=== PATIENT | female | born 1985 | race Caucasian/White ===

== ENCOUNTER 2020-03-17 17:44 | Outpatient (REF) | payer MEDICAID, SELFPAY ==
--- NOTE | 2020-03-17 17:50 | MR_ITS ---
EXAMINATION: MR SHOULDER WITHOUT CONTRAST, RIGHT CLINICAL INFORMATION: Right shoulder pain and decreased range of motion for 2 months. COMPARISON: Right shoulder radiographs dated 12/21/2019. TECHNIQUE: MRI of the shoulder without contrast was performed on a high-field scanner. FINDINGS: ROTATOR CUFF: Minimal infraspinatus tendinosis with degenerative cystic change in the adjacent greater tuberosity. No measurable rotator cuff defect. No muscle atrophy or fatty infiltration. BICEPS: Normal. CORACOACROMIAL ARCH: The undersurface of the acromion is minimally curved with no subacromial spur. The acromioclavicular joint is normal. LABRUM/CAPSULE: Normal. GLENOHUMERAL JOINT/MARROW: Normal. MR/MR shoulder RT wo con IMPRESSION: Minimal infraspinatus tendinosis with degenerative cystic change in the greater tuberosity. No measurable rotator cuff defect.
== END 2020-03-17 17:45 | disposition home or self-care (01) ==
LOC: HO.MRI 17:44
PROVIDERS: Visit Provider Emergency Medicine
DX: M25.511 Pain in right shoulder (principal)
CPT/HCPCS: 73221

== ENCOUNTER → 2021-07-18 12:56 | Outpatient (BNVA) | payer MEDICAID, SELFPAY | PROVIDERS: PCP Internal Medicine Geriatric Medicine; Visit Provider Nurse Practitioner Family | DX: M54.12 Radiculopathy, cervical region (principal); M79.18 Myalgia, other site | CPT/HCPCS: 99202 ==

== ENCOUNTER → 2021-08-15 13:46 | Outpatient (BNVA) | payer MEDICAID, SELFPAY | PROVIDERS: PCP Internal Medicine Geriatric Medicine; Visit Provider Nurse Practitioner Family | DX: M79.18 Myalgia, other site (principal); M54.12 Radiculopathy, cervical region | CPT/HCPCS: 99212 ==

== ENCOUNTER 2021-10-09 12:06 | Emergency (ER) | payer MEDICAID, SELFPAY ==
--- NOTE | ~2021-10-09 | XR_ITS ---
EXAMINATION: CHEST AND RIGHT RIBS, PELVIS AND RIGHT HIP, RIGHT SHOULDER CLINICAL INFORMATION: Fall with pelvis and hip pain, rib pain and right shoulder pain COMPARISON: None TECHNIQUE: Single view chest with 2 additional views right RIBS, 2 views right shoulder, single view pelvis with 2 additional views right hip FINDINGS: No significant bone joint or soft tissue abnormality is seen. There is a biconvex thoracolumbar scoliosis. The heart and pulmonary vessels appear normal. The lungs are clear. XR/XR hip RT w PEL1V IMPRESSION: No evidence of a traumatic osseous injury involving the chest, right RIBS, pelvis, right hip or right shoulder
--- NOTE | ~2021-10-09 | XR_ITS ---
EXAMINATION: CHEST AND RIGHT RIBS, PELVIS AND RIGHT HIP, RIGHT SHOULDER CLINICAL INFORMATION: Fall with pelvis and hip pain, rib pain and right shoulder pain COMPARISON: None TECHNIQUE: Single view chest with 2 additional views right RIBS, 2 views right shoulder, single view pelvis with 2 additional views right hip FINDINGS: No significant bone joint or soft tissue abnormality is seen. There is a biconvex thoracolumbar scoliosis. The heart and pulmonary vessels appear normal. The lungs are clear. XR/XR shoulder RT min 2V IMPRESSION: No evidence of a traumatic osseous injury involving the chest, right RIBS, pelvis, right hip or right shoulder
--- NOTE | ~2021-10-09 | CT_ITS ---
EXAMINATION: CT HEAD WITHOUT CONTRAST CT CERVICAL SPINE WITHOUT CONTRAST CLINICAL INFORMATION: Fall. Questionable loss of consciousness. COMPARISON: None. TECHNIQUE: Multidetector CT imaging of the head and cervical spine was performed without the use of intravenous contrast. Multiplanar reformats are reviewed. This CT examination was performed using dose optimization techniques as appropriate, variously including the following: *Automated exposure control *Adjustment of mA and/or kV according to patient size (this includes techniques or standardized protocols for targeted exams where dose is matched to indication/reason for exam; i.e. extremities or head) *Use of iterative reconstruction technique DLP: 1033 mGy-cm. FINDINGS: There is no evidence of acute intracranial hemorrhage or territorial infarction. No abnormal mass effect or midline shift is seen. Faith to white matter differentiation is well preserved. No extra-axial fluid collections are identified. The ventricles are normal in size. There is no abnormal attenuation within the brain parenchyma. The osseous structures and soft tissues are normal. Scattered secretions throughout the paranasal sinuses. Mastoid air cells are clear. Atlantooccipital alignment is maintained. The vertebral bodies and posterior elements align normally. No acute fracture or subluxation. Vertebral body heights are maintained. No significant degenerative changes are appreciated. No central canal or foraminal narrowing. The paraspinal soft tissues are unremarkable. The imaged lung apices are clear CT/CT cervical spine wo con IMPRESSION: No acute intracranial pathology. No cervical spine fracture or malalignment.
--- NOTE | ~2021-10-09 | CT_ITS ---
EXAMINATION: CT HEAD WITHOUT CONTRAST CT CERVICAL SPINE WITHOUT CONTRAST CLINICAL INFORMATION: Fall. Questionable loss of consciousness. COMPARISON: None. TECHNIQUE: Multidetector CT imaging of the head and cervical spine was performed without the use of intravenous contrast. Multiplanar reformats are reviewed. This CT examination was performed using dose optimization techniques as appropriate, variously including the following: *Automated exposure control *Adjustment of mA and/or kV according to patient size (this includes techniques or standardized protocols for targeted exams where dose is matched to indication/reason for exam; i.e. extremities or head) *Use of iterative reconstruction technique DLP: 1033 mGy-cm. FINDINGS: There is no evidence of acute intracranial hemorrhage or territorial infarction. No abnormal mass effect or midline shift is seen. Faith to white matter differentiation is well preserved. No extra-axial fluid collections are identified. The ventricles are normal in size. There is no abnormal attenuation within the brain parenchyma. The osseous structures and soft tissues are normal. Scattered secretions throughout the paranasal sinuses. Mastoid air cells are clear. Atlantooccipital alignment is maintained. The vertebral bodies and posterior elements align normally. No acute fracture or subluxation. Vertebral body heights are maintained. No significant degenerative changes are appreciated. No central canal or foraminal narrowing. The paraspinal soft tissues are unremarkable. The imaged lung apices are clear CT/CT head/brain wo con IMPRESSION: No acute intracranial pathology. No cervical spine fracture or malalignment.
--- NOTE | ~2021-10-09 | XR_ITS ---
EXAMINATION: CHEST AND RIGHT RIBS, PELVIS AND RIGHT HIP, RIGHT SHOULDER CLINICAL INFORMATION: Fall with pelvis and hip pain, rib pain and right shoulder pain COMPARISON: None TECHNIQUE: Single view chest with 2 additional views right RIBS, 2 views right shoulder, single view pelvis with 2 additional views right hip FINDINGS: No significant bone joint or soft tissue abnormality is seen. There is a biconvex thoracolumbar scoliosis. The heart and pulmonary vessels appear normal. The lungs are clear. XR/XR ribs RT min 3V w CXR1V IMPRESSION: No evidence of a traumatic osseous injury involving the chest, right RIBS, pelvis, right hip or right shoulder
[2021-10-09 12:22] VITALS: BP 118/72; PULSE 87; O2SAT 97
[2021-10-09 12:24] VITALS: BP 140/76; PULSE 76; RESP 18; TEMP 36.6; O2SAT 98; BMI 23.3
--- NOTE | 2021-10-09 12:27 | ED_ITS ---
HPI - Fall General Chief Complaint: Fall Stated Complaint: FALL DOWN 4 FLIGHTS OF CEMENT STEPS,+LOC,+CCOLLAR Time Seen by Provider: 10/09/21 12:21 Source: patient and EMS Mode of arrival: EMS Limitations: no limitations History of Present Illness HPI Narrative: Patient comes to the emergency room after falling and slipping down 4 stairs. 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 Patient is triaged, it says the patient lost consciousness, however after talking with the patient, since that this was a language issue, patient states that she failed dazed but did not lose consciousness. Patient was awake the whole time and remembers everything. Patient states that she is complaining of rib pain that is worse under the right axilla. Patient also complained of right hip pain. Related Data Home Medications Medication Instructions Recorded Confirmed acetaminophen 500 mg tablet 1,000 mg PO Q8H PRN 07/18/21 08/15/21 albuterol sulfate 90 mcg/actuation 2 puff PO Q4-6H PRN 07/18/21 08/15/21 aerosol inhaler (ProAir HFA) cholecalciferol (vitamin D3) 50 50 mcg PO DAILY 07/18/21 08/15/21 mcg (2,000 unit) capsule gabapentin 300 mg capsule 300 mg PO TID 07/18/21 08/15/21 sumatriptan succinate 25 mg tablet 25 mg PO 07/18/21 08/15/21 Previous Rx's Medication Instructions Recorded cyclobenzaprine 10 mg tablet 10 mg PO TID PRN #10 tab 10/09/21 ibuprofen 600 mg tablet 600 mg PO Q6H PRN #20 tab 10/09/21 Allergies Allergy/AdvReac Type Severity Reaction Status Date / Time No Known Allergies Allergy Verified 08/15/21 14:17 [No Known Allergies*] Review of Systems Review of Systems: Constitutional : No Weight loss, No Fever, No Chills, No Night Sweats, No Fatigue, No Malaise ENT/Mouth : No Hearing loss, No Ear Pain, No Nasal Congestion, No Sinus Pain, No Hoarseness, No sore throat, No Rhinorrhea, No Swallowing Difficulty Eyes: No Eye Pain, No Swelling, No Redness, No Foreign Body, No Discharge, No Vision Changes Cardiovascular : No Chest Pain, No SOB, No Dyspnea on Exertion, No Orthopnea, No Edema, No Palpitations Respiratory : No Cough, No Sputum, No Wheezing, No Smoke Exposure, No Dyspnea Gastrointestinal : No Nausea, No Vomiting, No Diarrhea, No Constipation, No abdominal Pain, No Hematochezia, No Melena Genitourinary : no irregular bleeding, No Dysuria, No Urinary Frequency, No Hematuria, No Urinary Incontinence, No Urgency, No Flank Pain, No Urinary Flow Changes, No Hesitancy Musculoskeletal : Complaining of mild neck pain, rib pain under the right axilla, right hip Skin : No Skin Lesions, No rash Neuro : No Weakness, No Numbness, No Paresthesias, No Loss of Consciousness, No Dizziness, complaining of Headache Psych : No Anxiety/Panic, No Depression, No SI/HI/AH/VH, No Social Issues, Heme/Lymph: No Bruising, No Bleeding,No Lymphadenopathy Endocrine : No Polyuria, No Polydipsia, No Temperature Intolerance PMFSH Social History Social History Advance Directives: No Advance Directives Information Provided: No Physical Exam Vital Signs: Vital Signs: Last Vital Signs Temp 98 F 10/09/21 12:24 Pulse 76 10/09/21 12:24 Resp 18 10/09/21 12:24 BP 140/76 H 10/09/21 12:24 Pulse Ox 98 10/09/21 12:24 BMI result Body Mass Index 23.3 Const: Other: Appearance: Alert. Oriented X3. No acute distress. Eyes: Pupils equal, round and reactive to light. ENT: Pharynx normal. Neck: On C-spine precautions. No palpable step-offs, mild discomfort to palpation on the lateral sides of the neck, no C-spine tenderness CVS: Normal heart rate and rhythm. Pulses normal. Normal S1 and S2 Respiratory: No respiratory distress. Breath sounds normal. No Wheezing. No rales Abdomen: Soft and nontender. No rigidity. No distention. Skin: Skin warm and dry. Normal skin color. Normal skin turgor. No bruising, pain to palpation on the right axilla Extremities: No lower extremity edema. No Lacerations. No Rash, no shoulder pain, normal range of motion bilateral Neuro: Oriented X 3. No motor deficit. No sensory deficit. Moving all extremities. No slurred speech. CN 2 through 12 grossly intact Psych: calm, cooperative, normal affect Course Course Course Narrative: Patient has been giving Tylenol p.o., CT scans of head and neck, x-rays from de bs and hip pending. Head and cervical spine CT within normal limits, x-rays pending, results discussed with patient X-rays do not show any fracture. Source of pain likely contusion. Prior to discharge, patient developed a rash, itchy in the right side, patient was given 1 dose of Benadryl and prednisone. MDM - Fall Imaging Data Head and cervical spine CT: Radiologist's impression: FINDINGS: There is no evidence of acute intracranial hemorrhage or territorial infarction. No abnormal mass effect or midline shift is seen. Faith to white matter differentiation is well preserved. No extra-axial fluid collections are identified. The ventricles are normal in size. There is no abnormal attenuation within the brain parenchyma. The osseous structures and soft tissues are normal. Scattered secretions throughout the paranasal sinuses. Mastoid air cells are clear. Atlantooccipital alignment is maintained. The vertebral bodies and posterior elements align normally. No acute fracture or subluxation. Vertebral body heights are maintained. No significant degenerative changes are appreciated. No central canal or foraminal narrowing. The paraspinal soft tissues are unremarkable. The imaged lung apices are clear ? CT/CT head/brain wo con IMPRESSION: No acute intracranial pathology. No cervical spine fracture or malalignment. Shoulder x-ray, right ribs, right pelvis, right hip x-ray: Radiologist's impression: XR/XR shoulder RT min 2V IMPRESSION: No evidence of a traumatic osseous injury involving the chest, right RIBS, pelvis, right hip or right shoulder? Discharge Plan Discharge Clinical Impression: Fall, Contusion Patient Disposition: Home, Self-Care Instructions: Contusion in Adults (ED) Additional Instructions: Please follow-up with your primary care physician tomorrow. If you have any worsening or new symptoms, please return to the emergency room or call 911 Prescriptions: New ibuprofen 600 mg tablet 600 mg PO Q6H PRN (Reason: pain) Qty: 20 0RF cyclobenzaprine 10 mg tablet 10 mg PO TID PRN (Reason: muscle spasm) Qty: 10 0RF No Action albuterol sulfate [ProAir HFA] 90 mcg/actuation HFA aerosol inhaler 2 puff PO Q4-6H PRN0RF acetaminophen 500 mg tablet 1,000 mg PO Q8H PRN0RF gabapentin 300 mg capsule 300 mg PO TID 0RF cholecalciferol (vitamin D3) 50 mcg (2,000 unit) capsule 50 mcg PO DAILY 0RF sumatriptan succinate 25 mg tablet 25 mg PO 0RF Stand Alone Forms: Work/School Release
[2021-10-09] MEDS: Ondansetron ODT 4 MG TAB.RAPDIS TRANSLINGU (12:53)
[2021-10-09] MEDS: Acetaminophen 325 MG TABLET 975 MG PO (13:18)
[2021-10-09 16:00] VITALS: BP 129/71; PULSE 78; RESP 18; TEMP 36.9; O2SAT 98
[2021-10-09] MEDS: diphenhydrAMINE HCL 25 MG TABLET PO (16:08)
[2021-10-09] MEDS: predniSONE 20 MG TABLET PO (16:08)
--- NOTE | 2021-10-09 16:14 | PC.NURSE ---
Addendum entered by Amaya Ortiz 10/09/21 16:15: pt noted new rash on right arm, provider notified. Original Note: pt a&ox3, c/o 12/03 right-sided pain following fall, provider talking to pt regarding ct/xr results, vss. medicated per provider order.
== END 2021-10-09 16:16 | disposition home or self-care (01) ==
PROVIDERS: Emergency Provider Emergency Medicine; PCP Internal Medicine Geriatric Medicine
DX: S20.213A Contusion of bilateral front wall of thorax, initial encounter (principal); S30.1XXA Contusion of abdominal wall, initial encounter; M25.552 Pain in left hip; M25.551 Pain in right hip; G44.309 Post-traumatic headache, unspecified, not intractable; M54.2 Cervicalgia; W10.9XXA Fall (on) (from) unspecified stairs and steps, initial encounter; Y93.9 Activity, unspecified; Y92.9 Unspecified place or not applicable; Y99.0 Civilian activity done for income or pay; Z79.899 Other long term (current) drug therapy
CPT/HCPCS: 70450; 71101; 72125; 73030; 73502; 99284; Q0163

== ENCOUNTER 2021-11-03 12:37 | Outpatient (REF) | payer MEDICAID, SELFPAY ==
--- NOTE | ~2021-11-03 | XR_ITS ---
EXAMINATION: XR CHEST CLINICAL INFORMATION: Fluid-filled COMPARISON: Previous chest x-ray 10/09/2021 TECHNIQUE: 2 views of the chest were obtained. FINDINGS: The cardiac and mediastinal contours are normal. The lungs are clear. There is no pleural effusion or pneumothorax. There is curvature of the thoracic spine to the right. Bony structures are otherwise unremarkable. XR/XR chest 2V IMPRESSION: No evidence for acute disease in the chest.
== END 2021-11-03 12:38 | disposition home or self-care (01) ==
LOC: HO.XRAY 12:37
PROVIDERS: Visit Provider Emergency Medicine
DX: J11.1 Influenza due to unidentified influenza virus with other respiratory manifestations (principal)
CPT/HCPCS: 71046

== ENCOUNTER 2021-11-14 12:47 | Emergency (ER) | payer MEDICAID, SELFPAY ==
--- NOTE | ~2021-11-14 | CT_ITS ---
EXAMINATION: CT HEAD WITHOUT CONTRAST CLINICAL INFORMATION: Headache. COMPARISON: CT head 10/09/2021 TECHNIQUE: Contiguous axial imaging was performed from the skull base to vertex without intravenous administration of contrast. Coronal and sagittal reformatted images are performed at the CT scanner. [This CT examination was performed using dose optimization techniques as appropriate, variously including the following: *Automated exposure control *Adjustment of mA and/or kV according to patient size (this includes techniques or standardized protocols for targeted exams where dose is matched to indication/reason for exam; i.e. extremities or head) *Use of iterative reconstruction technique] DLP: 614 mGy-cm. FINDINGS: There is no evidence of acute intracranial hemorrhage or territorial infarction. No abnormal mass-effect or midline shift is seen. Faith to white matter differentiation is well preserved. No extra-axial fluid collections are identified. The ventricles are normal in size. There is no abnormal attenuation within the brain parenchyma. There is no osseous abnormality. Aerosolized mucous in the sphenoid sinuses bilateral. Scattered mucosal thickening in the ethmoid and maxillary sinuses. Mastoid air cells and middle ear cavities are normally aerated. CT/CT head/brain wo con IMPRESSION: 1. No acute intracranial pathology. 2. Sinus disease.
[2021-11-14 13:46] VITALS: BP 138/80; PULSE 78; RESP 18; TEMP 37; O2SAT 99; BMI 23.3
[2021-11-14 14:16] LABS: Influenza A Negative (Negative); Influenza B2 Negative (Negative)
[2021-11-14 14:16] LABS: COVID-19 Test Negative (Negative); IDNOW Serial# 16C4AD1C
--- NOTE | 2021-11-14 14:52 | ED.GENADULT ---
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 Patient does have history of migraines but states that they have not been constant in this way, she has completed a course of antibiotics for suspected sinusitis but complaints of forehead, throat, neck discomfort. She states that [id number] medications have not been helping and feels that she is very sick and has had were symptoms over the past 3 days. She denies any recent travel, and denies any history camping/ hiking/ walking in the [place] but does have a dog. Related Data Home Medications Medication Instructions Recorded Confirmed acetaminophen 500 mg tablet 1,000 mg PO Q8H PRN 07/18/21 08/15/21 albuterol sulfate 90 mcg/actuation 2 puff PO Q4-6H PRN 07/18/21 08/15/21 aerosol inhaler (ProAir HFA) cholecalciferol (vitamin D3) 50 50 mcg PO DAILY 07/18/21 08/15/21 mcg (2,000 unit) capsule gabapentin 300 mg capsule 300 mg PO TID 07/18/21 08/15/21 sumatriptan succinate 25 mg tablet 25 mg PO migraine 07/18/21 08/15/21 Previous Rx's Medication Instructions Recorded cyclobenzaprine 10 mg tablet 10 mg PO TID PRN muscle spasm #10 10/09/21 tabs ibuprofen 600 mg tablet 600 mg PO Q6H PRN pain #20 tabs 10/09/21 amoxicillin 875 mg-potassium 1 tab PO Q12H 7 days #14 tabs 11/14/21 clavulanate 125 mg tablet ketorolac 10 mg tablet 10 mg PO Q6H PRN pain 5 days #20 11/14/21 tabs Allergies Allergy/AdvReac Type Severity Reaction Status Date / Time No Known Allergies Allergy Verified 08/15/21 14:17 [No Known Allergies*] Review of Systems Review of Systems: Pertinent positives and negatives as stated in HPI 10 point review of systems is otherwise negative. [facility] Past Medical History Source: nursing notes reviewed Social History Social History Patient Tobacco Use Status: Never used Tobacco Substance Use Type: Marijuana Advance Directives: No Advance Directives Information Provided: No Physical Exam ED Vital Signs: Vital Signs - 24 hr 11/14/21 13:46 Temperature 98.6 F Pulse Rate 78 Respiratory Rate 18 Blood Pressure 138/80 Pulse Oximetry 99 Oxygen Delivery Method Room Air BMI result Body Mass Index 23.3 VITAL SIGNS: Reviewed. GENERAL: Well developed, well nourished HEAD: Normocephalic/atraumatic, no adenopathy EYES: PERRLA, EOMI , no nystagmus EARS: Ext canals without abnormality OROPHARYNX: no oral lesions noted, posterior pharynx clear and non-erythematous without noted tonsillar enlargement/erythema/exudates NECK: Supple, no adenopathy LUNGS: Normal breath sounds. No adventitious sounds or accessory muscle use. SpO2<99> CARDIOVASCULAR: Regular rate and rhythm without noted murmurs ABDOMEN: Soft, non-tender, non-distended with bowel sounds. MUSCULOSKELETAL: No tenderness, deformities, or effusions noted on gross inspection. EXTREMITIES: No cyanosis, clubbing or edema. SKIN: Inspection of the skin reveals no rashes NEUROLOGIC: Alert and oriented x 4. Strength and sensation to light touch were grossly intact x 4 PSYCH: tearful, anxious Course Course Course Narrative: 35-year-old female with history and clinical presentation consistent possible viral syndrome, will evaluate for possible infectious etiology, low clinical suspicion for meningitis as this has been ongoing for 1 month. Patient is tearful. review of all investigations without acute findings. Patient did get some symptom relief from the medications that she was provided. CT scan does demonstrate significant sinus disease and patient will be treated with antibiotics and given instructions follow-up with primary care provider for possible referral to see ENT. Medical Decision Making Lab Data Result diagrams: 11/14/21 15:11 11/14/21 15:11 Labs: Lab Results 11/14/21 11/14/21 11/14/21 Range/Units 13:48 13:49 15:07 WBC (4.8-10.8) X10*3/uL RBC (4.20-5.50) X10*6/uL Hgb (12.0-16.0) g/dl Hct (37.0-47.0) % MCV (80.0-98.0) fL MCH (27.0-33.0) pg MCHC (31.0-35.0) g/dl RDW (11.0-16.0) % Plt Count (160-400) X10*3/uL MPV (9.4-12.3) fL Immature Gran % (Auto) (0.0-0.4) % Neut % (Auto) (45-73) % Lymph % (Auto) (20-40) % Wilkin % (Auto) (2-11) % Eos % (Auto) (0-4) % Baso % (Auto) (0-2) % Lymph # (Auto) (1.2-4.9) X10*3/uL Wilkin # (Auto) (0.1-1.2) X10*3/uL Eos # (Auto) (0.0-0.4) X10*3/uL Baso # (Auto) (0.0-0.2) X10*3/uL Abs Immat Gran (auto) (0.00-0.03) X10*3/uL Absolute Neuts (auto) (2.0-8.3) x10*3/uL Absolute Nucleated RBC (0.0-0.012) X10*3/uL Nucleated RBC % (auto) (0.0-0.2) /100WBC ESR (0-20) MM/HR Sodium (135-145) mmol/L Potassium (3.3-5.1) mmol/L Chloride (96-108) mmol/L Carbon Dioxide (22-29) mmol/L Anion Gap (12-20) BUN (9-16) mg/dL Creatinine (0.5-1.4) mg/dL Estim Creat Clear Calc Estimated GFR Random Glucose (60-115) mg/dL Calcium (8.4-10.2) mg/dL Total Bilirubin (0.0-1.0) mg/dL AST (5-31) U/L ALT (0-31) U/L Alkaline Phosphatase (39-117) U/L C-Reactive Protein (< or = 0.50) mg/dL Total Protein (6.5-8.0) g/dL Albumin (3.5-5.0) g/dL Urine Color STRAW Urine Appearance HAZY Urine pH 6.0 (5.0-8.0) Ur Specific [place] 1.010 (1.005-1.025) Urine Protein NEG (NEG-TRACE) MG/DL Urine Glucose (UA) NEG (NEG) MG/DL Urine Ketones NEG (NEG) MG/DL Urine Blood 3+ H (NEG) Urine Nitrite NEG (NEG) Ur Leukocyte Esterase NEG (NEG) Urine RBC 30-49 H (0) /HPF Urine WBC 0-2 (0-4) /HPF Ur Squamous Epith Cells 1+ /LPF Urine Bacteria NONE /LPF Urine Test (NEGATIVE) COVID-19 (ETHEL) Negative (Negative) COVID-19 Clin Com See Note Monoscreen (Negative) Influenza Type A (SON) Negative (Negative) Influenza Type B (SON) Negative (Negative) Influenza A & B Note See Note 11/14/21 11/14/21 11/14/21 Range/Units 15:07 15:11 15:11 WBC 8.2 (4.8-10.8) X10*3/uL RBC 4.09 L (4.20-5.50) X10*6/uL Hgb 12.3 (12.0-16.0) g/dl Hct 37.6 (37.0-47.0) % MCV 91.9 (80.0-98.0) fL MCH 30.1 (27.0-33.0) pg MCHC 32.7 (31.0-35.0) g/dl RDW 13.4 (11.0-16.0) % Plt Count 325 (160-400) X10*3/uL MPV 11.4 (9.4-12.3) fL Immature Gran % (Auto) 0.2 (0.0-0.4) % Neut % (Auto) 63.4 (45-73) % Lymph % (Auto) 18.5 L (20-40) % Wilkin % (Auto) 14.9 H (2-11) % Eos % (Auto) 2.8 (0-4) % Baso % (Auto) 0.2 (0-2) % Lymph # (Auto) 1.5 (1.2-4.9) X10*3/uL Wilkin # (Auto) 1.2 (0.1-1.2) X10*3/uL Eos # (Auto) 0.2 (0.0-0.4) X10*3/uL Baso # (Auto) 0.0 (0.0-0.2) X10*3/uL Abs Immat Gran (auto) 0.02 (0.00-0.03) X10*3/uL Absolute Neuts (auto) 5.2 (2.0-8.3) x10*3/uL Absolute Nucleated RBC 0.000 (0.0-0.012) X10*3/uL Nucleated RBC % (auto) 0.0 (0.0-0.2) /100WBC ESR 14 (0-20) MM/HR Sodium (135-145) mmol/L Potassium (3.3-5.1) mmol/L Chloride (96-108) mmol/L Carbon Dioxide (22-29) mmol/L Anion Gap (12-20) BUN (9-16) mg/dL Creatinine (0.5-1.4) mg/dL Estim Creat Clear Calc Estimated GFR Random Glucose (60-115) mg/dL Calcium (8.4-10.2) mg/dL Total Bilirubin (0.0-1.0) mg/dL AST (5-31) U/L ALT (0-31) U/L Alkaline Phosphatase (39-117) U/L C-Reactive Protein (< or = 0.50) mg/dL Total Protein (6.5-8.0) g/dL Albumin (3.5-5.0) g/dL Urine Color Urine Appearance Urine pH (5.0-8.0) Ur Specific [place] (1.005-1.025) Urine Protein (NEG-TRACE) MG/DL Urine Glucose (UA) (NEG) MG/DL Urine Ketones (NEG) MG/DL Urine Blood (NEG) Urine Nitrite (NEG) Ur Leukocyte Esterase (NEG) Urine RBC (0) /HPF Urine WBC (0-4) /HPF Ur Squamous Epith Cells /LPF Urine Bacteria /LPF Urine Test NEGATIVE (NEGATIVE) COVID-19 (ETHEL) (Negative) COVID-19 Clin Com Monoscreen (Negative) Influenza Type A (SON) (Negative) Influenza Type B (SON) (Negative) Influenza A & B Note 11/14/21 11/14/21 Range/Units 15:11 15:11 WBC (4.8-10.8) X10*3/uL RBC (4.20-5.50) X10*6/uL Hgb (12.0-16.0) g/dl Hct (37.0-47.0) % MCV (80.0-98.0) fL MCH (27.0-33.0) pg MCHC (31.0-35.0) g/dl RDW (11.0-16.0) % Plt Count (160-400) X10*3/uL MPV (9.4-12.3) fL Immature Gran % (Auto) (0.0-0.4) % Neut % (Auto) (45-73) % Lymph % (Auto) (20-40) % Wilkin % (Auto) (2-11) % Eos % (Auto) (0-4) % Baso % (Auto) (0-2) % Lymph # (Auto) (1.2-4.9) X10*3/uL Wilkin # (Auto) (0.1-1.2) X10*3/uL Eos # (Auto) (0.0-0.4) X10*3/uL Baso # (Auto) (0.0-0.2) X10*3/uL Abs Immat Gran (auto) (0.00-0.03) X10*3/uL Absolute Neuts (auto) (2.0-8.3) x10*3/uL Absolute Nucleated RBC (0.0-0.012) X10*3/uL Nucleated RBC % (auto) (0.0-0.2) /100WBC ESR (0-20) MM/HR Sodium 139 (135-145) mmol/L Potassium 3.9 (3.3-5.1) mmol/L Chloride 107 (96-108) mmol/L Carbon Dioxide 26 (22-29) mmol/L Anion Gap 10 L (12-20) BUN 14 (9-16) mg/dL Creatinine 0.62 (0.5-1.4) mg/dL Estim Creat Clear Calc 115.0 Estimated GFR > 60 Random Glucose 94 (60-115) mg/dL Calcium 8.9 (8.4-10.2) mg/dL Total Bilirubin < 0.2 (0.0-1.0) mg/dL AST 16 (5-31) U/L ALT 16 (0-31) U/L Alkaline Phosphatase 113 (39-117) U/L C-Reactive Protein 1.58 H (< or = 0.50) mg/dL Total Protein 7.4 (6.5-8.0) g/dL Albumin 4.4 (3.5-5.0) g/dL Urine Color Urine Appearance Urine pH (5.0-8.0) Ur Specific [place] (1.005-1.025) Urine Protein (NEG-TRACE) MG/DL Urine Glucose (UA) (NEG) MG/DL Urine Ketones (NEG) MG/DL Urine Blood (NEG) Urine Nitrite (NEG) Ur Leukocyte Esterase (NEG) Urine RBC (0) /HPF Urine WBC (0-4) /HPF Ur Squamous Epith Cells /LPF Urine Bacteria /LPF Urine Test (NEGATIVE) COVID-19 (ETHEL) (Negative) COVID-19 Clin Com Monoscreen Negative (Negative) Influenza Type A (SON) (Negative) Influenza Type B (SON) (Negative) Influenza A & B Note Discharge Plan Discharge Clinical Impression: Sinusitis, Headache Patient Disposition: Home, Self-Care Instructions: Rhinosinusitis (ED), General Headache (ED) Additional Instructions: 1. Reanudar todos los medicamentos caseros seg?n lo prescrito. 2. Aumenta el agua que bebes. Complete todo el curso de antibi?ticos seg?n lo prescrito. 3. Tylenol 1000 mg, por v?a oral, cada 6 horas seg?n sea necesario para controlar el dolor. 4. Recomiende un humidificador de vapor fr?o junto a la cama. 5. Gabriel un seguimiento con bernstein proveedor de atenci?n primaria y discuta saadia posible remisi?n para ENT. Regrese a la ashkan de emergencias si los s?ntomas empeoran. Prescriptions: New amoxicillin-pot clavulanate 875-125 mg tablet 1 tab PO Q12H 7 Days Qty: 14 0RF ketorolac 10 mg tablet 10 mg PO Q6H PRN (Reason: pain) 5 Days Qty: 20 0RF Rx Instructions: Patient received Toradol in the ER. Please instruct patient to stop all other NSAIDs. No Action ibuprofen 600 mg tablet 600 mg PO Q6H PRN (Reason: pain) Qty: 20 0RF cyclobenzaprine 10 mg tablet 10 mg PO TID PRN (Reason: muscle spasm) Qty: 10 0RF albuterol sulfate [ProAir HFA] 90 mcg/actuation HFA aerosol inhaler 2 puff PO Q4-6H PRN acetaminophen 500 mg tablet 1,000 mg PO Q8H PRN gabapentin 300 mg capsule 300 mg PO TID cholecalciferol (vitamin D3) 50 mcg (2,000 unit) capsule 50 mcg PO DAILY sumatriptan succinate 25 mg tablet 25 mg PO Referrals: Name,MD Delroy [Primary Care Provider] - Print Language: Slovenian
[2021-11-14 15:15] LABS: MANUAL DIFF FLAG NO
[2021-11-14] MEDS: Ketorolac Tromethamine 15 MG/ML VIAL IM (15:17)
[2021-11-14] MEDS: Acetaminophen 325 MG TABLET 975 MG PO (15:17)
[2021-11-14 15:19] LABS: Basophils Percent Auto 0.2 % (0-2); Eosinophils Absolute Auto 0.2 X10*3/uL (0.0-0.4); Eosinophils Percent Auto 2.8 % (0-4); Hematocrit 37.6 % (37.0-47.0); Hemoglobin 12.3 g/dl (12.0-16.0); Imm Gran Abs Auto 0.02 X10*3/uL (0.00-0.03); Imm Gran Pct Auto 0.2 % (0.0-0.4); Lymphocytes Absolute Auto 1.5 X10*3/uL (1.2-4.9); Lymphocytes Percent Auto 18.5 % (20-40); Mean Corpuscular HGB Conc 32.7 g/dl (31.0-35.0); Mean Corpuscular Hemoglobin 30.1 pg (27.0-33.0); Mean Corpuscular Volume 91.9 fL (80.0-98.0); Mean Platelet Volume 11.4 fL (9.4-12.3); Monocytes Absolute Auto 1.2 X10*3/uL (0.1-1.2); Monocytes Percent Auto 14.9 % (2-11); Neutrophils Absolute Auto 5.2 x10*3/uL (2.0-8.3); Neutrophils Percent Auto 63.4 % (45-73); Platelet Count 325 X10*3/uL (160-400); Red Blood Count 4.09 X10*6/uL (4.20-5.50); Red Cell Distribution Width 13.4 % (11.0-16.0); White Blood Count 8.2 X10*3/uL (4.8-10.8)
[2021-11-14 15:24] LABS: Appearance Urine HAZY; Color Urine STRAW; Glucose Urine UA NEG (NEG); Leukocyte Esterase Urine NEG (NEG); Nitrite Urine NEG (NEG); UACC Culture Trigger NO; Urine Blood 3+ (NEG); Urine Ketones NEG (NEG); Urine Protein NEG (NEG-TRACE)
[2021-11-14 15:27] LABS: UPreg QC Valid YES; Urine Pregnancy NEGATIVE (NEGATIVE)
[2021-11-14 15:36] LABS: Alanine Aminotransferase 16 U/L (0-31); Albumin Level 4.4 g/dL (3.5-5.0); Alkaline Phosphatase 113 U/L (39-117); Anion Gap 10 (12-20); Aspartate Amino Transferase 16 U/L (5-31); Bilirubin Total < 0.2 mg/dL (0.0-1.0); Blood Urea Nitrogen 14 mg/dL (9-16); C Reactive Protein 1.58 mg/dL (< or = 0.50); Calcium 8.9 mg/dL (8.4-10.2); Carbon Dioxide 26 mmol/L (22-29); Chloride 107 mmol/L (96-108); Estimated Glomerular Filt Rate > 60; Glucose Random 94 mg/dL (60-115); Potassium 3.9 mmol/L (3.3-5.1); Sodium 139 mmol/L (135-145); Total Protein 7.4 g/dL (6.5-8.0)
[2021-11-14 15:40] LABS: RBC Urine 30-49 /HPF (0); Squamous Epithelial Cell Urine 1+ /LPF; WBC Urine 0-2 /HPF (0-4)
[2021-11-14 15:47] LABS: Monotest Negative (Negative)
[2021-11-14 15:57] LABS: Erythrocyte Sedimentation Rate 14 MM/HR (0-20)
[2021-11-14] MEDS: Butalb/Acetamin/Caff 50/325/40 TABLET 1 TAB PO (18:20)
[2021-11-14 18:37] VITALS: BP 134/65; PULSE 77; RESP 16; TEMP 37; O2SAT 98
[2021-11-14] MEDS: Amoxicillin/Potassium Clav 875 MG TABLET PO (18:43)
[2021-11-16 09:27] LABS: Lyme Abs Screen <0.90 index
== END 2021-11-14 18:48 | disposition home or self-care (01) ==
PROVIDERS: Emergency Provider Student in an Organized Health Care Education/Training Program; PCP Internal Medicine Geriatric Medicine
DX: G43.909 Migraine, unspecified, not intractable, without status migrainosus (principal); J32.9 Chronic sinusitis, unspecified; Z20.822 Contact with and (suspected) exposure to COVID-19; Z79.899 Other long term (current) drug therapy
CPT/HCPCS: 36415; 70450; 80053; 81001; 81025; 85025; 85652; 86140; 86308; 86617; 86618; 87502; 87635; 96372; 99283; 99284; J1885

== ENCOUNTER 2022-09-06 13:11 | Outpatient (REF) | payer MEDICAID, SELFPAY ==
--- NOTE | ~2022-09-06 | XR_ITS ---
EXAMINATION: XR CERVICAL SPINE. XR SHOULDER, RIGHT CLINICAL INFORMATION: Right shoulder pain, radiculopathy COMPARISON: Right shoulder radiographs 10/09/2021 TECHNIQUE: 5 views of the cervical spine. 3 views of the right shoulder. FINDINGS: Cervical spine: Normal alignment. No fracture or prevertebral soft tissue swelling. Intervertebral disc heights are preserved. No prevertebral soft tissue swelling. No neural foraminal narrowing on the oblique views. Right shoulder: Normal alignment. No fracture. No degenerative findings. No suspicious bone lesion or soft tissue calcification. XR/XR cervical spine min 6V IMPRESSION: CERVICAL SPINE: Normal. RIGHT SHOULDER: Normal.
--- NOTE | ~2022-09-06 | XR_ITS ---
EXAMINATION: XR CERVICAL SPINE. XR SHOULDER, RIGHT CLINICAL INFORMATION: Right shoulder pain, radiculopathy COMPARISON: Right shoulder radiographs 10/09/2021 TECHNIQUE: 5 views of the cervical spine. 3 views of the right shoulder. FINDINGS: Cervical spine: Normal alignment. No fracture or prevertebral soft tissue swelling. Intervertebral disc heights are preserved. No prevertebral soft tissue swelling. No neural foraminal narrowing on the oblique views. Right shoulder: Normal alignment. No fracture. No degenerative findings. No suspicious bone lesion or soft tissue calcification. XR/XR shoulder RT min 2V IMPRESSION: CERVICAL SPINE: Normal. RIGHT SHOULDER: Normal.
== END 2022-09-06 13:12 | disposition home or self-care (01) ==
LOC: HO.XRAY 13:11
PROVIDERS: PCP Internal Medicine Geriatric Medicine; Visit Provider Nurse Practitioner Family
DX: M25.511 Pain in right shoulder (principal); M79.18 Myalgia, other site; M54.2 Cervicalgia; M54.12 Radiculopathy, cervical region
CPT/HCPCS: 72052; 73030; 99212

== ENCOUNTER → 2023-04-04 15:27 | Outpatient (BNVA) | payer SELFPAY | PROVIDERS: PCP Internal Medicine Geriatric Medicine; Visit Provider Physician Assistant | DX: S83.92XA Sprain of unspecified site of left knee, initial encounter (principal); W01.0XXA Fall on same level from slipping, tripping and stumbling without subsequent striking against object, initial encounter | CPT/HCPCS: 99203 ==

== ENCOUNTER → 2023-04-09 13:29 | Outpatient (BNVA) | payer OTHER, SELFPAY | PROVIDERS: PCP Internal Medicine Geriatric Medicine; Visit Provider Physician Assistant Medical | DX: S16.1XXA Strain of muscle, fascia and tendon at neck level, initial encounter (principal); S83.92XA Sprain of unspecified site of left knee, initial encounter; W01.0XXA Fall on same level from slipping, tripping and stumbling without subsequent striking against object, initial encounter | CPT/HCPCS: 99213 ==

== ENCOUNTER → 2023-04-11 12:52 | Outpatient (BNVA) | payer OTHER, SELFPAY | PROVIDERS: PCP Internal Medicine Geriatric Medicine; Visit Provider Physician Assistant Medical | DX: S16.1XXA Strain of muscle, fascia and tendon at neck level, initial encounter (principal); W01.0XXA Fall on same level from slipping, tripping and stumbling without subsequent striking against object, initial encounter | CPT/HCPCS: 99213 ==

== ENCOUNTER 2023-04-12 10:28 | Outpatient (REF) | payer MEDICAID, SELFPAY ==
[2023-04-12 11:28] LABS: Appearance Urine Clear; Color Urine Yellow; Glucose Urine UA Negative (Negative); Leukocyte Esterase Urine Negative (Negative); MANUAL DIFF FLAG NO; Nitrite Urine Negative (Negative); PH 5.5 (5.0-9.0); Specific Gravity - Urine 1.025 (1.005-1.025); Urine Blood Negative (Negative); Urine Ketones Negative (Negative); Urine Protein Negative (Neg-Trace)
[2023-04-12 11:29] LABS: Basophils Percent Auto 0.5 % (0-2); Eosinophils Absolute Auto 0.2 X10*3/uL (0.0-0.4); Eosinophils Percent Auto 2.8 % (0-4); Hematocrit 39.5 % (37.0-47.0); Hemoglobin 12.8 g/dl (12.0-16.0); Imm Gran Abs Auto 0.02 X10*3/uL (0.00-0.03); Imm Gran Pct Auto 0.3 % (0.0-0.4); Lymphocytes Percent Auto 32.1 % (20-40); Mean Corpuscular HGB Conc 32.4 g/dl (31.0-35.0); Mean Corpuscular Hemoglobin 29.9 pg (27.0-33.0); Mean Corpuscular Volume 92.3 fL (80.0-98.0); Mean Platelet Volume 11.8 fL (9.4-12.3); Monocytes Absolute Auto 0.7 X10*3/uL (0.1-1.2); Monocytes Percent Auto 11.3 % (2-11); Neutrophils Absolute Auto 3.4 x10*3/uL (2.0-8.3); Platelet Count 344 X10*3/uL (160-400); Red Blood Count 4.28 X10*6/uL (4.20-5.50); Red Cell Distribution Width 13.6 % (11.0-16.0); White Blood Count 6.4 X10*3/uL (4.8-10.8)
[2023-04-12 12:32] LABS: Anion Gap 10 (12-20)
[2023-04-12 12:35] LABS: Blood Urea Nitrogen 15 mg/dL (9-16); Calcium 9.6 mg/dL (8.4-10.2); Carbon Dioxide 26 mmol/L (22-29); Chloride 107 mmol/L (96-108); Estimated Glomerular Filt Rate > 60; Glucose Random 93 mg/dL (60-115); Potassium 4.1 mmol/L (3.3-5.1); Sodium 139 mmol/L (135-145)
== END 2023-04-12 10:29 | disposition home or self-care (01) ==
LOC: HO.HHCL 10:28
PROVIDERS: Visit Provider Internal Medicine
DX: R53.83 Other fatigue (principal); Z87.898 Personal history of other specified conditions
CPT/HCPCS: 36415; 80048; 81003; 84443; 85025

== ENCOUNTER → 2023-04-17 09:36 | Outpatient (BNVA) | payer OTHER, SELFPAY | PROVIDERS: PCP Internal Medicine Geriatric Medicine; Visit Provider Physician Assistant Medical | DX: S16.1XXA Strain of muscle, fascia and tendon at neck level, initial encounter (principal); S86.111A Strain of other muscle(s) and tendon(s) of posterior muscle group at lower leg level, right leg, initial encounter; W01.0XXA Fall on same level from slipping, tripping and stumbling without subsequent striking against object, initial encounter | CPT/HCPCS: 99213 ==

== ENCOUNTER → 2023-05-06 12:14 | Outpatient (BNVA) | payer OTHER, SELFPAY | PROVIDERS: PCP Internal Medicine Geriatric Medicine; Visit Provider Physician Assistant Medical | DX: S16.1XXD Strain of muscle, fascia and tendon at neck level, subsequent encounter (principal); W01.0XXD Fall on same level from slipping, tripping and stumbling without subsequent striking against object, subsequent encounter | CPT/HCPCS: 99213 ==

== ENCOUNTER 2023-07-29 13:26 | Outpatient (AMB) | payer OTHER, SELFPAY ==
--- NOTE | 2023-07-29 13:30 | A.OFFVIS_ITS ---
Intake Vital Signs 3 07/29/23 13:34 Height 5 ft 5 in Weight 148 lb BMI 24.6 BP 116/59 L Blood Pressure Location Rt brachial Position Sitting Pulse 89 Pulse Source Pulse Oximeter Pulse Oximetry (%) 98 Oxygen Delivery Method Room Air Intake Visit Reasons: RIGHT SHOULDER AND ARM PAIN Intake Note: Pain today 12/03 District Agent Required: No Accompanied by: Self / Same As Patient Allergies No Known Allergies [No Known Allergies*] Allergy (Verified 07/29/23 13:35) HPI HPI Comments 2 History of Present Illness0 Details Patient presents today for follow up for chronic neck pain with radiation into her right shoulder and right elbow. She was last seen in our office in August 2022 and was sent for physical therapy which patient reports she did not complete. Patient reports she did not receive appointment from [facility]. Pateint reports increased heaviness, numbness and tingling in her right upper extremity without specific dermatome. 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 Left hand dominant. Patient tried to manage her symptoms with heat therapy, Tylenol, gabapentin with continued symptoms. Denies any recent cough, cold, infection, fever, any significant changes in her medical history, medications or recent hospitalizations. PRIOR 09/06/22: Patient is a pleasant 36 years old female presents today for follow up for right shoulder pain and neck pain. Patient was last seen in this office by Maeve LEYVA for discussion of potential therapeutic vs diagnostic neck injections but has not followed up since then. Patient denies any recent trauma, injury or falls since last visit. However, review of EMR is noted for ER visit on 10/09/21 s/p fall down 4 flights of cement steps while mopping at work and slipped. Patient continues to endorse right cervical radiculopathies with weakness, numbness and paresthesias in her right upper arm and significant pain with internal and external right shoulder rotations. We [place] [facility] previous EMG studies in 2019 were normal and are noted below. Also, imaging status post fall are noted below and showed no shoulder or cervical spine fracture or malalignment. Patient is left hand dominant. Patient reports pain affects her daily activities, functioning, sleep, mood and social interactions. She has been taking gabapentin 300 mg tid with minimal effects. Reports constant fatigue due to lack of adequate sleep and has been feeling more anxious and depressed. Denies any fever, weight loss, dizziness, visual disturbances, chest pain, shortness of breath, gait imbalance, bladder or bowel incontinence or saddle anesthesia. PRIOR 08/15/21 Maeve LEYVA: Radha is a pleasant 35 year old female who presents to the office with complaints of neck pain. She reports the pain has been present for the past two years and has progressively worsened. She denies any inciting events. Her pain is located on the right side of the neck and travels down the arm in to all digits with associated tingling. She also reports numbness in the hand and occasional weakness. Per patient, she had an EMG in the past at [facility], these records are not available today. She underwent physical therapy in the past which resulted in exacerbation of pain and could not tolerate it. She does continue a HEP. She was previously under the care of [facility] about a year ago and reports having a procedure in which the pain completely resolved for two months. She can not recall what exact procedure was performed. She has tried gabapentin, heat and topicals with moderate improvement in her symptoms. She also has used muscle relaxers and ibuprofen with minimal relief. She reports some relief with prednisone in the past and is requesting a prescription today. Unfortunately, she states she completed a medrol dose ryder a week ago given to her for respiratory issues. She reports her pain is worse at night. The onset of pain was gradual, constant and rates the pain an 8-10/10. In terms of tissue damage she describes her pain as throbbing, pulsing, shooting and heavy. She feels as though she can not function normally due to the pain. She denies any surgery of the neck. She last had a cervical MRI at [facility] in 2020, this report is not available today. [facility] Social History Patient Tobacco Use Status: Never used Tobacco Substance Use Type: Marijuana Review of Systems Const All systems reviewed & are unremarkable except as noted in HPI and below ENT Reports Normal hearing present Neuro Reports Normal hearing present Physical Exam Vital Signs: Last Vital Signs Pulse 89 07/29/23 13:34 BP 116/59 L 07/29/23 13:34 Pulse Ox 98 07/29/23 13:34 Oxygen Delivery Method Room Air 07/29/23 13:34 BMI result Body Mass Index 24.6 General: Appears afebrile. Alert and oriented. Mood and affect appropriate. Follows and participates in conversation appropriately. Respiratory effort is unlabored. No cough. No nasal discharge. Able to transition from sit to stand unassisted. Ambulates with bilaterally normal heel strike and toe off. Eyes Pupils: Equal, round and reactive pupils present Neck Neck: Yes full ROM, Yes no lymphadenopathy, Yes supple, No anterior neck swelling, Yes no JVD and No prominent dorsocervical fat pad Back/Spine/Pelvis Cervical Spine: cervical ROM normal, No Lhermitte's sign positive, cervical muscular tenderness, pain with cervical ROM, cervical spasm, No Cervical spine tenderness and No step off deformity Thoracic/Lumbar Spine: thoracic and lumbar spine normal to inspection, thoraco- lumbar ROM normal, No thoracic spinal tenderness and No lumbar spinal tenderness Neuro General: Normal light touch and pain sensation, CN's II-XI intact bilaterally and deep tendon reflexes 2+ bilaterally Cranial nerves: Yes Equal, round and reactive pupils present, Yes Normal facial strength present, Yes Normal hearing present and Yes Ability to bilaterally elevate shoulders present Cognition (Neuro): normal cognition Gait exam (Neuro): Normal gait present Motor exam (neuro): 5/5 motor strength present throughout, no tremor noted and Motor abnormalities not present Extrem General: Yes capillary refill normal, Yes no clubbing, cyanosis or edema and Yes no calf tenderness Right upper extremity: shoulder/upper arm Details: normal to inspection, tenderness (anterior and posterior aspects) and normal ROM; no swelling and no crepitus and elbow/forearm Details: normal to inspection, tenderness Location: of the lateral epicondyle and of the medial epicondyle, normal ROM and distal pulses intact; no swelling and no crepitus Results Reviewed Results Reviewed: CHEST AND RIGHT RIBS, PELVIS AND RIGHT HIP, RIGHT SHOULDER 10/09/21 CLINICAL INFORMATION: Fall with pelvis and hip pain, rib pain and right shoulder pain FINDINGS: No significant bone joint or soft tissue abnormality is seen. There is a biconvex thoracolumbar scoliosis. The heart and pulmonary vessels appear normal. The lungs are clear. IMPRESSION: No evidence of a traumatic osseous injury involving the chest, right RIBS, pelvis, right hip or right shoulder. CT HEAD WITHOUT CONTRAST CT CERVICAL SPINE WITHOUT CONTRAST 10/09/21 CLINICAL INFORMATION: Fall. Questionable loss of consciousness. FINDINGS: There is no evidence of acute intracranial hemorrhage or territorial infarction. No abnormal mass effect or midline shift is seen. Faith to white matter differentiation is well preserved. No extra-axial fluid collections are identified. The ventricles are normal in size. There is no abnormal attenuation within the brain parenchyma. The osseous structures and soft tissues are normal. Scattered secretions throughout the paranasal sinuses. Mastoid air cells are clear. Atlantooccipital alignment is maintained. The vertebral bodies and posterior elements align normally. No acute fracture or subluxation. Vertebral body heights are maintained. No significant degenerative changes are appreciated. No central canal or foraminal narrowing. The paraspinal soft tissues are unremarkable. The imaged lung apices are clear IMPRESSION: No acute intracranial pathology. No cervical spine fracture or malalignment. XR CERVICAL SPINE. XR SHOULDER, RIGHT 09/06/22 CLINICAL INFORMATION: Right shoulder pain, radiculopathy COMPARISON: Right shoulder radiographs 10/09/2021 FINDINGS: Cervical spine: Normal alignment. No fracture or prevertebral soft tissue swelling. Intervertebral disc heights are preserved. No prevertebral soft tissue swelling. No neural foraminal narrowing on the oblique views. Right shoulder: Normal alignment. No fracture. No degenerative findings. No suspicious bone lesion or soft tissue calcification. IMPRESSION: CERVICAL SPINE: Normal. RIGHT SHOULDER: Normal. Assessment & Plan Assessment & Plan (1) Cervical radiculopathy: Code(s): M54.12 - Radiculopathy, cervical region (2) Numbness and tingling of right upper extremity: Code(s): R20.0 - Anesthesia of skin; R20.2 - Paresthesia of skin (3) Right shoulder pain: Code(s): M25.511 - Pain in right shoulder (4) Myofascial pain: Code(s): M79.18 - Myalgia, other site (5) Right elbow pain: Code(s): M25.521 - Pain in right elbow (6) Cervical spondylosis: Code(s): M47.812 - Spondylosis without myelopathy or radiculopathy, cervical region Plan 1. Discussed interventional treatments for right shoulder and elbow pain and chronic neck pain with diagnostic vs therapeutic injections for potential stimulative or ablative treatments. Patient declined any injections at this time and prefers to pursue physical therapy evaluation and treatment. Script provided for PT and [facility] contact information provided to patient to establish appt. 2. Refill for gabapentin provided with increased dose 400 mg BID. Patient will start baclofen, side effects and precauations discussed with patient. 3. EMG and NVC studies to evaluate for chronic cervical radicular pain and RUE numbness and tingling. 4. Work note provided at patient's request today. All questions were answered and patient agreed with the plan. Follow up after PT and sooner if needed. Orders: Orders 2 NE electromyogram (EMG) Today M54.12 - Radiculopathy, cervical region, R20.0 - Anesthesia of skin, R20.2 - Paresthesia of skin NE nerve conduction velocity Today M54.12 - Radiculopathy, cervical region, R20.0 - Anesthesia of skin, R20.2 - Paresthesia of skin PT Evaluation and Treatment Today M25.511 - Pain in right shoulder, M54.12 - Radiculopathy, cervical region, M54.2 - Cervicalgia, R20.0 - Anesthesia of skin, R20.2 - Paresthesia of skin Medications: New 2 baclofen 10 mg PO BID 30 days PRN 60 tabs 0RF muscle spasms M54.2 - Cervicalgia, M79.18 - Myalgia, other site Changed 2 From gabapentin 300 mg PO BID 30 days 60 caps 2RF pain M54.12 - Radiculopathy, cervical region, R20.0 - Anesthesia of skin, R20.2 - Paresthesia of skin To gabapentin 400 mg PO BID 30 days 60 caps 1RF pain M54.12 - Radiculopathy, cervical region, R20.0 - Anesthesia of skin, R20.2 - Paresthesia of skin Discontinued 2 ketorolac Patient received Toradol in the ER. Please instruct patient to stop all other NSAIDs. Discontinued Reason: Patient Completed Course 10 mg PO Q6H 5 days PRN 20 tabs 0RF pain ibuprofen Do not take along with other NSAIDS Discontinued Reason: Patient Completed Course 800 mg PO TID PRN 30 tabs 0RF pain and swelling Coding Level of Care Code Est Pt Level 4 (07698) Diagnoses Cervical radiculopathy M54.12 Numbness and tingling of right upper extremity R20.0; R20.2 Right shoulder pain M25.511 Myofascial pain M79.18 Right elbow pain M25.521 Cervical spondylosis M47.812
[2023-07-29 13:34] VITALS: BP 116/59; PULSE 89; O2SAT 98; BMI 24.6
== END 2023-07-29 13:48 | disposition home or self-care (01) ==
PROVIDERS: PCP Internal Medicine Geriatric Medicine; Visit Provider Nurse Practitioner Family
DX: M54.12 Radiculopathy, cervical region (principal); R20.0 Anesthesia of skin; R20.2 Paresthesia of skin; M25.511 Pain in right shoulder; M79.18 Myalgia, other site; M25.521 Pain in right elbow; M47.812 Spondylosis without myelopathy or radiculopathy, cervical region
CPT/HCPCS: 99214

== ENCOUNTER → 2023-07-29 13:26 | Outpatient (BNVA) | payer OTHER, SELFPAY | PROVIDERS: PCP Internal Medicine Geriatric Medicine; Visit Provider Nurse Practitioner Family | DX: M25.511 Pain in right shoulder (principal); M47.22 Other spondylosis with radiculopathy, cervical region; R20.0 Anesthesia of skin; R20.2 Paresthesia of skin; M79.18 Myalgia, other site; M25.521 Pain in right elbow | CPT/HCPCS: 99212 ==

== ENCOUNTER 2023-08-09 09:54 | Outpatient (REF) | payer MEDICAID, SELFPAY ==
[2023-08-09 11:29] LABS: MANUAL DIFF FLAG NO
[2023-08-09 11:42] LABS: Basophils Percent Auto 0.4 % (0-2); Eosinophils Absolute Auto 0.2 X10*3/uL (0.0-0.4); Eosinophils Percent Auto 2.7 % (0-4); Hematocrit 39.8 % (37.0-47.0); Hemoglobin 13.2 g/dl (12.0-16.0); Imm Gran Abs Auto 0.02 X10*3/uL (0.00-0.03); Imm Gran Pct Auto 0.3 % (0.0-0.4); Lymphocytes Absolute Auto 2.5 X10*3/uL (1.2-4.9); Lymphocytes Percent Auto 37.3 % (20-40); Mean Corpuscular HGB Conc 33.2 g/dl (31.0-35.0); Mean Corpuscular Hemoglobin 30.3 pg (27.0-33.0); Mean Corpuscular Volume 91.5 fL (80.0-98.0); Mean Platelet Volume 11.5 fL (9.4-12.3); Monocytes Absolute Auto 0.9 X10*3/uL (0.1-1.2); Monocytes Percent Auto 12.7 % (2-11); Neutrophils Absolute Auto 3.2 x10*3/uL (2.0-8.3); Neutrophils Percent Auto 46.6 % (45-73); Platelet Count 400 X10*3/uL (160-400); Red Blood Count 4.35 X10*6/uL (4.20-5.50); White Blood Count 6.8 X10*3/uL (4.8-10.8)
[2023-08-09 12:04] LABS: Anion Gap 13 (12-20); Blood Urea Nitrogen 13 mg/dL (9-16); Calcium 9.6 mg/dL (8.4-10.2); Carbon Dioxide 26 mmol/L (22-29); Chloride 105 mmol/L (96-108); Estimated Glomerular Filt Rate > 60; Glucose Random 95 mg/dL (60-115); Potassium 4.5 mmol/L (3.3-5.1); Sodium 139 mmol/L (135-145)
== END 2023-08-09 09:55 | disposition home or self-care (01) ==
LOC: HO.HHCL 09:54
PROVIDERS: Visit Provider Family Medicine
DX: R51.9 Headache, unspecified (principal)
CPT/HCPCS: 36415; 80048; 85025

== ENCOUNTER 2023-08-28 13:41 | Outpatient (REF) | payer MEDICAID, SELFPAY ==
--- NOTE | 2023-08-28 13:45 | EMG_ITS ---
Chief complaint: Right hand pain and numbness, neck pain Reason for referral: Evaluate for Carpal Tunnel Syndrome versus radiculopathy Referred by: Kerry Rae NP Procedure done: Right upper extremity NCS/EMG Precautions and/or limitations: None The limb temperature was monitored continuously and remained between 32-36 degrees C during the performance of the NCS. Nerve Conduction Studies Anti Sensory Summary Table ?Stim Site NR Onset (ms) Norm Onset (ms) Peak (ms) Norm Peak (ms) O-P Amp (?V) Norm O-P Amp Site1 Site2 Delta-0 (ms) Dist (cm) Chito (m/s) Norm Chito (m/s) Right Median Anti Sensory (2nd Digit) Wrist ? 2.0 2.5 <3.6 73.4 >10 Wrist 2nd Digit 2.0 14.0 70 Right Ulnar Anti Sensory (5th Digit) Wrist ? 1.8 2.4 <3.7 51.4 >15.0 Wrist 5th Digit 1.8 14.0 78 Motor Summary Table ?Stim Site NR Onset (ms) Norm Onset (ms) O-P Amp (mV) Norm O-P Amp iAmp (mV) Amp (1st) (%) Site1 Site2 Delta-0 (ms) Dist (cm) Chito (m/s) Norm Chito (m/s) Right Median Motor (Abd Poll Brev) Wrist ? 2.3 <3.9 7.4 >4.5 9.0 100.0 Elbow Wrist 4.0 20.0 50 >45 Elbow ? 6.3 6.5 7.8 87.8 Right Ulnar Motor (Abd Dig Minimi) Wrist ? 2.3 <3.0 11.4 >5 14.0 100.0 B Elbow Wrist 2.8 18.5 66 >45 B Elbow ? 5.1 11.3 13.2 99.1 A Elbow B Elbow 1.1 10.0 91 >45 A Elbow ? 6.2 11.2 13.0 98.2 Comparison Summary Table ?Stim Site NR Peak (ms) Norm Peak (ms) P-T Amp (?V) Site1 Site2 Delta-P (ms) Norm Delta (ms) Right Median/Radial Dig I Comparison (Digit 1 - 10cm) Median ? 2.2 <2.9 139.9 Median Radial 0.2 Radial ? 2.4 <2.8 111.8 EMG ?Side Muscle Nerve Root Ins Act Fibs Psw Amp Dur Poly Recrt Int Pat Comment Right 1stDorInt Ulnar C8-T1 Nml Nml Nml Nml Nml 0 Nml Complete Right FlexCarRad Median C6-7 Nml Nml Nml Nml Nml 0 Nml Complete Right Biceps Musculocut C5-6 Nml Nml Nml Nml Nml 0 Nml Complete Right Triceps Radial C6-7-8 Nml Nml Nml Nml Nml 0 Nml Complete Right Deltoid Axillary C5-6 Nml Nml Nml Nml Nml 0 Nml Complete FINDINGS: All motor and sensory nerves tested showed normal latencies, amplitudes and conduction velocities.. Concentric needle EMG was performed in selected muscles of the right upper extremity. Study did not reveal signs of electric abnormalities as shown in the table below. IMPRESSION: 1. This is a normal study. 2. There is no electrodiagnostic evidence for median neuropathy, ulnar neuropathy, brachial plexopathy, or cervical radiculopathy. Thank you for your kind referral. Elena Campuzano MD, BENEDICT Board Certified, [place] [employer] and [employer] (ABPMR) Board Certified, [place] Board [employer] Electrodiagnostic [employer] (ABEM) CODIN 60792 MTDD
== END 2023-08-28 13:42 | disposition home or self-care (01) ==
LOC: HO.NEURO 13:41
PROVIDERS: PCP Internal Medicine Geriatric Medicine; Visit Provider Nurse Practitioner Family
DX: R20.0 Anesthesia of skin (principal); R20.2 Paresthesia of skin; M54.12 Radiculopathy, cervical region
CPT/HCPCS: 95886; 95909

== ENCOUNTER → 2023-08-28 13:45 | Outpatient (BNV) | payer MEDICAID, SELFPAY | PROVIDERS: PCP Internal Medicine Geriatric Medicine; Visit Provider Physical Medicine & Rehabilitation | DX: M79.641 Pain in right hand (principal); R20.2 Paresthesia of skin | CPT/HCPCS: 95886; 95909 ==

== ENCOUNTER 2023-08-28 18:26 | Outpatient (REF) | payer MEDICAID, SELFPAY ==
[2023-09-02 22:33] LABS: C. trachomatis RNA TMA NOT DETECTED (NOT DETECTED); N. gonorrhoeae RNA TMA NOT DETECTED (NOT DETECTED); Trichomonas (NAAT) NOT DETECTED (NOT DETECTED)
[2023-09-03 04:18] LABS: HPV mRNA E6/E7 rflx Not Detected (Not Detected)
== END 2023-08-28 18:27 | disposition home or self-care (01) ==
LOC: HO.HHCLNP 18:26
PROVIDERS: Visit Provider Advanced Practice Midwife
DX: Z01.419 Encounter for gynecological examination (general) (routine) without abnormal findings (principal); Z11.3 Encounter for screening for infections with a predominantly sexual mode of transmission
CPT/HCPCS: 36415; 87491; 87591; 87624; 87661; 88142

== ENCOUNTER 2023-09-18 13:49 | Outpatient (REF) | payer MEDICAID, SELFPAY ==
--- NOTE | ~2023-09-18 | US_ITS ---
EXAMINATION: MM DIAGNOSTIC DIGITAL BREAST TOMOSYNTHESIS, BILATERAL US BREAST LIMITED, LEFT MAMMOGRAPHY: CLINICAL INFORMATION: 37-year-old female complaining of left breast palpable focus of abnormality upper outer quadrant, approximate 2:00 axis. Patient says provider also felt. Patient also states single episode of left nipple discharge (brownish and greenish) which only happened during compression for mammogram. Patient states never happened before. History of benign right ultrasound-guided biopsy yielding adenosis, fibrocystic changes and microcalcifications. COMPARISON: Mammography: 02/19/2020., 01/20/2020 TECHNIQUE: Digital breast tomosynthesis is performed in both the craniocaudal and mediolateral oblique views along with computer-aided detection (CAD). Synthesized 2D images are generated from the tomosynthesis. FINDINGS: The breasts are extremely dense, which lowers the sensitivity of mammography (ACR BI-RADS breast composition Category d). Area of palpable concern in the 2:00 axis of the left breast, posterior one third, was marked by the technologist with a BB marker. The patient has a barbell shaped left nipple ring. Examination of the nipple demonstrated no evidence of infection or redness. There is a post benign coil biopsy clip at the 12:00 axis right breast. No definite discrete mass, architectural distortion, or suspicious calcifications present which could be distinguished reliably from the extremely dense breast parenchyma in either breast. Scattered calcifications bilaterally in both the mid and upper breasts are most consistent with sclerosing adenosis, and many appear to layer on the MLO view suggesting milk of calcium. No tight grouping or pleomorphism is seen. No retroareolar abnormality is noted on the left breast on mammography. No skin or axillary abnormalities. ULTRASOUND: CLINICAL INFORMATION: As above. COMPARISON: 01/20/2020. TECHNIQUE: Targeted sonographic evaluation was performed using a high frequency linear transducer. Attention was given to the retroareolar region of the left breast, as well as the 2:00 axis in the region of palpable concern. Selected archived documentation. FINDINGS: LEFT BREAST: -Both myself and the technologist scanned. There is extremely dense fibrocystic tissue present. -In the 2:00 axis of the left breast, 7 cm from the nipple, there is a benign cluster of cysts present which correlates well with the focus of palpable concern. This is benign. No suspicious associated abnormality. This cluster measures approximately 2.8 x 0.6 x 1.8 cm. -Examination of the retroareolar region demonstrates extensive duct ectasia, without evidence of filling defect, intraductal mass, or intraductal debris. No discharge was elicited during examination. US/US breast LT limited mamm only IMPRESSION: There are no findings suspicious for malignancy in either breast. There is extremely dense fibrocystic tissue in both breasts. When this patient begins screening mammography at age 41, screening adjunct such as screening breast ultrasound interposed 6 months in between screening mammography could be considered. Palpable abnormality in the left breast 2:00 axis correlates to a benign cluster of cysts. No further follow-up recommended. There is duct ectasia in the left retroareolar region without associated mass or intraductal filling defects. Solitary episode of nipple discharge during mammography is felt to be unlikely to be clinically significant, unless it continues. If left nipple discharge does continue, recommend clinical management and fluid testing, with possible breast MRI to follow. Otherwise, recommend resuming routine annual screening mammography at age 41. Findings were discussed with the patient directly. OVERALL ASSESSMENT: Mammography: BI-RADS 2 - Benign Findings Ultrasound: BI-RADS 2 - Benign Findings RECOMMENDATION: 1. Patient should be managed based on the clinical impression. 2. Otherwise, routine annual screening mammography, beginning at age 40.
== END 2023-09-18 13:50 | disposition home or self-care (01) ==
LOC: HO.MAMMO 13:49
PROVIDERS: PCP Internal Medicine Geriatric Medicine; Visit Provider Advanced Practice Midwife
DX: N63.21 Unspecified lump in the left breast, upper outer quadrant (principal)
CPT/HCPCS: 76642; 77062; 77066

== ENCOUNTER → 2023-09-18 14:00 | Outpatient (BNV) | payer MEDICAID, SELFPAY | PROVIDERS: PCP Internal Medicine Geriatric Medicine; Visit Provider Radiology Diagnostic Radiology | DX: R92.0 Mammographic microcalcification found on diagnostic imaging of breast (principal); R92.343 Mammographic extreme density, bilateral breasts; Z97.8 Presence of other specified devices | CPT/HCPCS: 76642; 77062; 77066 ==

== ENCOUNTER 2024-02-03 14:21 | Outpatient (REF) | payer MEDICAID, SELFPAY ==
--- NOTE | ~2024-02-03 | XR_ITS ---
EXAMINATION: XR CERVICAL SPINE CLINICAL INFORMATION: Headache. CERVICOGENIC HEADACHE. COMPARISON: None available. TECHNIQUE: 5 views of cervical spine including obliques FINDINGS: Slight reversal of usual cervical lordosis.. No intrinsic bony abnormality. The disc heights and neural foramina are well maintained. The endplates and posterior elements are normal. No fracture or subluxation. The surrounding prevertebral soft tissues are unremarkable. XR/XR cervical spine 4V IMPRESSION: Unremarkable examination. Electronically signed by: Patricio Slaughter MD 02/19/2024 06:22 AM EDT RP
== END 2024-02-03 14:22 | disposition home or self-care (01) ==
LOC: HO.HHCX 14:21
PROVIDERS: Visit Provider Internal Medicine Geriatric Medicine
DX: G44.86 Cervicogenic headache (principal)
CPT/HCPCS: 72050

== ENCOUNTER 2024-07-15 14:22 | Outpatient (REF) | payer MEDICAID, SELFPAY ==
--- NOTE | ~2024-07-15 | XR_ITS ---
EXAMINATION: XR HIP, RIGHT CLINICAL INFORMATION: sp fall/right hip/knee/leg and thigh pain COMPARISON: None available. TECHNIQUE: Two views of the right hip. FINDINGS: No fracture. Alignment is anatomic. Hip joint space is maintained. Normal acetabular coverage. Soft tissues are unremarkable. XR/XR hip RT min 2V IMPRESSION: Normal right hip. Electronically signed by: Travis Chaudhry MD 07/15/2024 04:23 PM [facility]
--- NOTE | ~2024-07-15 | XR_ITS ---
EXAMINATION: XR KNEE, RIGHT CLINICAL INFORMATION: sp fall/right hip/knee/leg and thigh pain COMPARISON: None available. TECHNIQUE: Four views of the right knee. FINDINGS: No fracture or joint effusion. Alignment is anatomic. Joint spaces are maintained. No abnormal soft tissue calcification. XR/XR knee RT 4V IMPRESSION: Normal right knee. Electronically signed by: Travis Chaudhry MD 07/15/2024 04:25 PM [facility]
--- NOTE | ~2024-07-15 | XR_ITS ---
EXAMINATION: XR HIP, LEFT CLINICAL INFORMATION: sp fall/right hip/knee/leg and thigh pain COMPARISON: None available. TECHNIQUE: Two views of the left hip. FINDINGS: No fracture. Alignment is anatomic. Hip joint space is maintained. Normal acetabular coverage. Soft tissues are unremarkable. XR/XR hip LT min 2V IMPRESSION: Normal left hip. Electronically signed by: Travis Chaudhry MD 07/15/2024 04:23 PM [facility]
--- NOTE | ~2024-07-15 | XR_ITS ---
EXAMINATION: XR TIBIA AND FIBULA, RIGHT CLINICAL INFORMATION: sp fall/right hip/knee/leg and thigh pain COMPARISON: None available. TECHNIQUE: AP and lateral views of the right tibia and fibula were obtained. FINDINGS: The bones and soft tissues are normal. No fracture. No osseous lesions. XR/XR tibia fibula RT 2V IMPRESSION: Normal right tibia and fibula. Electronically signed by: Travis Chaudhry MD 07/15/2024 04:24 PM [facility]
--- OUTSIDE RECORDS SUMMARY | 2024-07-15 14:30 | XMS_ITS | Encounter Summary ---
Author Organization [employer] Address [address] [place] [address] Care Team Providers Care Consumer Affairs Specialist Name Role Phone Name, Delroy VILA Primary Care Provider [phone] Encounter Details Date Type Department Care Team (Late st Contact Info) Description 06/26/2024 Telephone [facility] [address], [place] [id number] Name, MD Delroy [address] [place], [place] [id number] Social History Tobacco Use Types Packs/Day Years Used Date Smoking Tobacco: Former Cigarettes Passive Smoke Exposure: Past Smokeless Tobacco: Never Alcohol Use Standard Drinks/Week Comments Yes 0 (1 standard drink = 0.6 oz pur e alcohol) occassional Depression Answer Date Recorded Patient Health Questionnaire-9 Score 2 06/23/2024 Patient Health Questionnaire-9 Score 2 06/23/2024 Last PHQ-9: Questionnaire Data Not on file 0 06/23/2024 Housing Stability Answer Date Recorded What is your housing situation today? I have vanessa villa 06/11/[address] you li ve. Do you have problems with any of the following? None of the above 06/11/2024 Food Insecurity Answer Date Recorded Within the past 12 months, y ou worried that your food would run out before you got money to buy more: Never True 06/11/2024 Within the past 12 months,th e food you bought just didn't last and you didn't have enough money to get more: Never True Transportation Answer Date Recorded In the past 12 months, has l ack of transportation kept you from medical appts, meetings, work or from getting things needed for daily living? No 06/11/2024 Utilities Answer Date Recorded In the past 12 months, has t he electric, gas, oil or water company threatened to shut off services in your home? No 06/11/2024 Depression Answer Date Recorded Patient Health Questionnaire-2 Score 0 06/23/2024 Internet Access Answer Date Recorded Internet Access Q1 Yes 06/11/2024 Internet Access Q2 Not on file 06/11/2024 Comments No Sex and Gender Information Value Date Recorded Sex Assigned at Female 03/26/2022 10:29 AM EDT Legal Sex Female 10:29 AM EDT Gender Identity Female 03/26/2022 10:29 AM EDT Sexual Orientation Straight 03/26/2022 10 :29 AM EDT documented as of this encounter Miscellaneous Notes * Telephone Encounter - Nader Husain RN - 06/30/2024 2:03 PM EST TC placed to patient via [employer] (prieto # [id number]) who had patient on line but receptionist scheduler was not good and call dropped patient was no longer responding. Attempted to return call to patient and went straight to voicemail but voicemail box is not set up. Patient to return call PRN if extension letter is still needed. * Telephone Encounter - July Lucas - 06/26/2024 10:06 AM EST Tc from pt requesting letter for work to get extended as provider inform if not feeling well to contact us for letter to get extended. Pt was transfer to medical records as they inform pt they're notable to assist her to contact team nurse. Callback number if any questions [phone] documented in this encounter Plan of Treatment Upcoming Encounters Date Type Department Care Team (Late st Contact Info) Description 08/21/2024 2:45 PM EDT Office Visit [facility] [address] [place] [address] Name, MD Delroy [address] [place] [address] 08/27/2024 2:00 PM EDT Office Visit [facility] [address] [place] [address] Johanny Aguilar CNM [address] [place] [address] 09/01/2024 2:30 PM EDT Office Visit [facility] [address] [place] [address] Raeann Meléndez, OD [address] [place] [address] documented as of this encounter Visit Diagnoses Not on filedocumented in this encounter Additional Health Concerns Assessment Noted Time PHQ-9 Depression Total Score: 2 06/23/19 25 3:19 PM EST documented as of this encounter Care Teams Consumer Affairs Specialist Relationship Specialty Start Date End Date Name, MD Delroy [address] [place] [address] PCP - General Family Medicine 03/22/21 documented as of this encounter
--- OUTSIDE RECORDS SUMMARY | 2024-07-15 14:30 | XMS_ITS | Encounter Summary ---
Author Organization [facility] Address [address] [facility] 7t [place] [address] Care Team Providers Care Internet Marketing Strategist Name Role Phone Name, Delroy VILA Primary Care Provider Reason for Visit * Reason Onset Date Comments triage 07/31/2022 Encounter Details Date Type Department Care Team (Late st Contact Info) Description 07/31/2022 Telephone [facility] [address] [place], [place] [phone] Name, MD Delroy [address] [place] [address] triage Social History Tobacco Use Types Packs/Day Years Used Date Smoking Tobacco: Former Cigarettes Passive Smoke Exposure: Past Smokeless Tobacco: Never Comments Unknown Sex and Gender Information Value Date Recorded Sex Assigned at Female 03/26/2022 10:29 AM EDT Legal Sex Female 10:29 AM EDT Gender Identity Female 03/26/2022 10:29 AM EDT Sexual Orientation Straight 03/26/2022 10 :29 AM EDT COVID-19 Exposure Response Date Recorded In the last 10 days, have yo u been in contact with someone who was confirmed or suspected to have Coronavirus/COVID-19? No / Unsure 07/25/2022 11:12 AM EST documented as of this encounter Miscellaneous Notes * Telephone Encounter - Michelle Lanier RN - 07/31/2022 12:23 PM EST Triage call with Delivery Agent Project Management Engineer Id [id number] Pt reports rectal bleeding has occurred for the last several days. Pt reports BM two days ago caused pain, toilet water was red and some blood on toilet paper. Pt had a BM this morning and no bleeding evident. Pt does report BM is q2-3 days with some constipation at times. Pt doesn't use anything to help the constipation. Pt reports has started to have hemorrhoids the last 2-3 days and hasn't hadthem before. Neg for abdominal pain. Offered apt with provider but, Pt is going away on vacation 08/08 and wants to be checked before Pt goes. Offered the [facility] today and Pt agreed with disposition and home care reviewed. Protocol Used: Rectal Bleeding (Adult) Protocol-Based Disposition: See in Office or Video Visit Today Positive Triage Questions: * Moderate rectal bleeding (small blood clots, passing blood without stool, or toilet water turns red) * Patient wants to be seen * All higher-acuity triage questions were negative Care Advice Discussed: * Reassurance and Education - Mild Rectal Bleeding * Warm Saline SITZ Baths - For Rectal Symptoms * Warm Saline Sitz Bath - How to Make a SITZ Bath * To Soften Stools and Treat Constipation * High Fiber Diet * Hydrocortisone Ointment for Rectal Itching * Reasons To Call Back - Bleeding increases in amount - Bleeding occurs 3 or more times after treatment begins - You become worse * Telephone Encounter - Danny Drew - 07/31/2022 11:23 AM EST Symptom: Stools - Blood Mixed In Outcome: Talk to a nurse or provider within 15 minutes Reason: Large amount of blood The caller accepted this outcome speaks american documented in this encounter Plan of Treatment Upcoming Encounters Date Type Department Care Team (Late st Contact Info) Description 08/21/2024 2:45 PM EDT Office Visit [address] [address] Name, MD Delroy [address] [place] [address] 08/27/2024 2:00 PM EDT Office Visit [facility] [address] [place] [phone] Johanny Aguilar CNM [address] [place] [address] 09/01/2024 2:30 PM EDT Office Visit [facility] [address] [place], [place] [phone] Raeann Meléndez, OD [address] [place], [place] [phone] documented as of this encounter Visit Diagnoses Not on filedocumented in this encounter Care Teams Internet Marketing Strategist Relationship Specialty Start Date End Date Name, MD Delroy [address] [place] [address] PCP - General Family Medicine 03/22/21 documented as of this encounter
--- OUTSIDE RECORDS SUMMARY | 2024-07-15 14:30 | XMS_ITS | Encounter Summary ---
Author Organization [employer] Address [address] [facility] 7t [place] [address] Care Team Providers Care Employee Relations Director Name Role Phone Name, Delroy VILA Primary Care Provider [phone] Encounter Details Date Type Department Care Team (Late st Contact Info) Description 07/15/2024 Telephone [facility] [address] [place], [place] [phone] Kimberly Valencia MD [address] [place], [place] [phone] Social History Tobacco Use Types Packs/Day Years [...] encounter Miscellaneous Notes * Telephone Encounter - Montserrat Kohler RN - 07/15/2024 2:07 PM EST TC placed to pt regarding message below per Dr. Valencia. Pt reports pain continues to right arm/leg area, denies other s/s at time of call. RN advised pt can use APAP and diclofenac gel as discussed with provider at visit yesterday 07/14/24. Pt verbalized understanding. RN inquired if x-rays werecompleted. Pt reports she was waiting to come today, did not want to come too early because it closes for meeting. RN informed xray usually shuts down around 4PM and pt can come now, and RN will have orders printed and ready for x-ray tech. Pt verbalized understanding and reports she will be to Walk In for x-rays in about 20-25 minutes. Pt to F/U as needed. RN printed and provided x-ray orders to [facility] x-ray tech. ----- Message from Kimberly Valencia MD sent at 07/14/2024 5:35 PM EST ----- Please call patient tomorrow for health status check, especially symptoms of orthostatic hypotension, palpitations or dizziness, she had a vasovagal reaction today documented in this encounter Plan of Treatment Upcoming Encounters Date Type Department Care Team (Late st Contact Info) Description 08/21/2024 2:45 PM EDT Office Visit [facility] [address] [place] [address] Name, MD Delroy [address] [place] [address] 08/27/2024 2:00 PM EDT Office Visit [facility] [address] [place] [address] Johanny Aguilar CNM [address] [place] [address] 09/01/2024 2:30 PM EDT Office Visit [facility] [address] [place], [place] [phone] Raeann Meléndez, OD [address] [place] [address] documented as of this encounter Visit Diagnoses Not on filedocumented in this encounter Additional Health Concerns Assessment Noted Time PHQ-9 Depression Total Score: 2 06/23/19 25 3:19 PM EST documented as of this encounter Care Teams Employee Relations Director Relationship Specialty Start Date End Date Name, MD Delroy [address] [place] [address] PCP - General Family Medicine 03/22/21 documented as of this encounter
--- OUTSIDE RECORDS SUMMARY | 2024-07-15 14:30 | XMS_ITS | Encounter Summary ---
Author Organization [facility] Address [address] [place] [address] 7t [place] [address] Care Team Providers Care Rn Pediatric Icu Name Role Phone Name, Delroy VILA Primary Care Provider [phone] Reason for Visit * Reason Comments Med Refill Encounter Details Date Type Department Care Team (Late Contact Info) Description 12/27/2022 Refill [facility] [address] [place] [phone] Karolina Lucero ANP [address] [place] [address] [phone] Social History Tobacco Use Types Packs/Day Years Used Date Smoking Tobacco: Former Cigarettes Passive Smoke Exposure: Past Smokeless Tobacco: Never Alcohol Use Standard Drinks/Week Comments Yes 0 (1 standard drink = 0.6 oz pur e alcohol) occassional Depression Answer Date Recorded Patient Health Questionnaire-9 Score 14 12/27/2022 Depression Answer Date Recorded Patient Health Questionnaire-2 Score 3 12/27/2022 Comments Unknown Sex and Gender Information Value Date Recorded Sex Assigned at Female 03/26/2022 10:29 AM EDT Legal Sex Female 10:29 AM EDT Gender Identity Female 03/26/2022 10:29 AM EDT Sexual Orientation Straight 03/26/2022 10 :29 AM EDT documented as of this encounter Plan of Treatment Upcoming Encounters Date Type Department Care Team (Late st Contact Info) Description 08/21/2024 2:45 PM EDT Office Visit [facility] [address] [place] [phone] Asmita, MD Delroy [address] [place] [phone] 08/27/2024 2:00 PM EDT Office Visit [facility] [address] [place] [address] Johanny Aguilar, KRISSY [address] [place] [address] 09/01/2024 2:30 PM EDT Office Visit [facility] [address] [place] [address] Raeann Meléndez, OD [address] [place] [address] documented as of this encounter Visit Diagnoses Not on filedocumented in this encounter Additional Health Concerns Assessment Noted Time PHQ-9 Depression Total Score: 14 023 9:30 AM EDT documented as of this encounter Care Teams Rn Pediatric Icu Relationship Specialty Start Date End Date Name, MD Delroy [address] [place] [address] PCP - General Family Medicine 03/22/21 documented as of this encounter
--- OUTSIDE RECORDS SUMMARY | 2024-07-15 14:30 | XMS_ITS | Encounter Summary ---
Author Organization [employer] [facility] [facility] Address [address] [place] [address] 7t [place] [address] Care Team Providers Care Sales And Operations Trainee Name Role Phone Name, Delroy VILA Primary Care Provider [phone] Reason for Visit * Reason Comments Med Refill Encounter Details Date Type Department Care Team (Late Contact Info) Description 12/27/2022 Refill [facility] [address] [place] [phone] NameDelroy MD [address] [place] [address] [phone] Social History Tobacco Use Types Packs/Day Years [...] Encounters Date Type Department Care Team (Late Contact Info) Description 08/21/2024 2:45 PM EDT Office Visit [facility] [address] [place] [phone] NameDelroy MD [address] [place] [address] 08/27/2024 2:00 PM EDT Office Visit [facility] [address] [place] [address] Johanny Aguilar, KRISSY [address] [place] [address] 09/01/2024 2:30 PM EDT Office Visit [facility] OPT[facility] [address] [place], [place] [phone] Raeann Meléndez, OD [address] [place] [address] documented as of this encounter Visit Diagnoses Not on filedocumented in this encounter Additional Health Concerns Assessment Noted Time PHQ-9 Depression Total Score: 14 023 9:30 AM EDT documented as of this encounter Care Teams Sales And Operations Trainee Relationship Specialty Start Date End Date Name, MD Delroy [address] [place] [address] PCP - General Family Medicine 03/22/21 documented as of this encounter
--- OUTSIDE RECORDS SUMMARY | 2024-07-15 14:30 | XMS_ITS | Encounter Summary ---
Author Organization [employer] Address [address] [facility] 7t [place] [address] Care Team Providers Care Establishment Guide Name Role Phone Name, Delroy VILA Primary Care Provider [phone] Encounter Details Date Type Department Care Team (Late st Contact Info) Description 08/09/2023 Telephone [facility] [address] [place], [place] [phone] Name, MD Delroy [address] [place], [place] [phone] Social History Tobacco Use Types Packs/Day Years Used Date Smoking Tobacco: Former Cigarettes Passive Smoke Exposure: Past Smokeless Tobacco: Never Alcohol Use Standard Drinks/Week Comments Yes 0 (1 standard drink = 0.6 oz pur e alcohol) occassional Depression Answer Date Recorded Patient Health Questionnaire-9 Score 14 12/27/2022 Housing Stability Answer Date Recorded What is your housing situation today? I have vanessa villa 04/01/[address] you li ve. Do you have problems with any of the following? None of the above 04/01/2023 Food Insecurity Answer Date Recorded Within the past 12 months, y ou worried that your food would run out before you got money to buy more: Never True 04/01/2023 Within the past 12 months,th e food you bought just didn't last and you didn't have enough money to get more: Never True 10/2022 Transportation Answer Date Recorded In the past 12 months, has l ack of transportation kept you from medical appts, meetings, work or from getting things needed for daily living? No 04/01/2023 Utilities Answer Date Recorded In the past 12 months, has t he electric, gas, oil or water company threatened to shut off services in your home? No 04/01/2023 Depression Answer Date Recorded Patient Health Questionnaire-2 [...] Description 08/21/2024 2:45 PM EDT Office Visit [facility] [address] [place] [address] Name, MD Delroy [address] [place] [address] 08/27/2024 2:00 PM EDT Office Visit [facility] [address] [place] [address] Johanny Aguilar, CNM [address] [place] [address] 09/01/2024 2:30 PM EDT Office Visit [facility] OPT[facility] [address] [place] [address] Raeann Meléndez, OD [address] [place] [address] documented as of this encounter Visit Diagnoses Not on filedocumented in this encounter Additional Health Concerns Assessment Noted Time PHQ-9 Depression Total Score: 14 023 9:30 AM EDT documented as of this encounter Care Teams Establishment Guide Relationship Specialty Start Date End Date Name, MD Delroy [address] [place] [address] PCP - General Family Medicine 03/22/21 documented as of this encounter
--- OUTSIDE RECORDS SUMMARY | 2024-07-15 14:30 | XMS_ITS | Encounter Summary ---
Author Organization [employer] Address [address] [facility] 7t [place] [address] Care Team Providers Care Asbestos Worker Helper Name Role Phone Name, Delroy VILA Primary Care Provider [phone] Encounter Details Date Type Department Care Team (Late st Contact Info) Description 07/14/2024 5:00 PM EST Office Visit [facility] [address] [place], [place] [id number] Kimberly Valencia MD [address] [place] [address] Sprain of hip, unspecified laterality, initial encounter (Primary Dx); Anterior leg pain, right; Acute pain of right knee; Vasovagal reaction Social History Tobacco Use Types Packs/Day Years [...] AM EDT documented as of this encounter Last Filed Vital Signs Vital Sign Reading Time Taken Comments Blood Pressure 109/66 07/14/2024 5:41 PM EST Pulse 77 07/14/2024 5:41 PM EST Temperature 37.7 ??C (99.8 ??F) 07/14/2024 4:40 PM ES T Respiratory Rate 17 07/14/2024 5:41 PM EST Oxygen Saturation 99% 07/14/2024 5:41 PM EST Inhaled Oxygen Concentration - - Weight 68.9 kg (152 lb) 07/14/2024 4:40 PM EST Height 165.1 cm (5' 5 ) 07/14/2024 4:40 PM EST Body Mass Index 25.29 07/14/2024 4:40 PM EST documented in this encounter Progress Notes * Kimberly Valencia MD - 07/14/2024 5:00 PM EST SUBJECTIVE: Radha Del Castillo is a 38 y.o. year old female who presents for Walk In Center/fall . Denies recent illness, injury, or hospitalization. Patient is here with her son. Acute Concerns: Patient here for evaluation of right-sided arm hip and leg pain after a fall yesterday on her way out of work. She works local [employer] and on her way out she slipped on thing ice and then your head right side, mild head trauma with no loss of consciousness. She was able to get back up on her own and drove to her house, she took Tylenol with mild improvement of symptoms and went to urgent this morning but has severe pain limitation to do her usual work duties. She denies having any fever, dizziness, chest pain or shortness of breath. Social History Social History Narrative Not on file Patient Active Problem List Diagnosis Generalized anxiety disorder Bilateral low back pain without sciatica Calcification of right breast on mammography Hepatitis C Congenital torticollis Depressive disorder Gastroesophageal reflux disease Hemangioma of liver Hepatitis C antibody test positive Family history of bipolar disorder Major depressive disorder, recurrent, moderate (CMS/HCC) Arthritis Genital herpes simplex Sprain of hip Anterior leg pain, right Acute pain of right knee Vasovagal reaction No family history on file. Review of Systems Constitutional: Negative for chills, fatigue and fever. HENT: Negative for congestion, ear pain, nosebleeds, rhinorrhea, sinus pressure, sore throat and trouble swallowing. Eyes: Negative for pain and discharge. Respiratory: Negative for cough, chest tightness and shortness of breath. Cardiovascular: Negative for chest pain, palpitations and leg swelling. Gastrointestinal: Negative for abdominal pain, blood in stool, constipation, diarrhea and nausea. Endocrine: Negative for polydipsia and polyuria. Genitourinary: Negative for dysuria, frequency, genital sores, pelvic pain and vaginal discharge. Musculoskeletal: Positive for arthralgias, back pain and gait problem. Negative for neck pain. Skin: Negative for rash. Allergic/Immunologic: Negative for environmental allergies. Neurological: Negative for dizziness, seizures, weakness, light-headedness and headaches. Hematological: Negative for adenopathy. Psychiatric/Behavioral: Negative for agitation, behavioral problems, self-injury and suicidal ideas. OBJECTIVE: Vitals: 07/14/24 1640 07/14/24 1741 BP: 114/72 109/66 BP Location: Left arm Left arm Patient Position: Sitting Sitting BP Cuff Size: Adult Adult Pulse: 90 77 Resp: 17 17 Temp: 99.8 ??F (37.7 ??C) TempSrc: Oral SpO2: 97% 99% Weight: 152 lb (68.9 kg) Height: 5' 5 (1.651 m) Physical Exam Constitutional: Appearance: Normal appearance. HENT: Right Ear: Tympanic membrane and ear canal normal. Left Ear: Tympanic membrane and ear canal normal. Mouth/Throat: Mouth: Mucous membranes are moist. Pharynx: No oropharyngeal exudate or posterior oropharyngeal erythema. Eyes: Pupils: Pupils are equal, round, and reactive to light. Cardiovascular: Rate and Rhythm: Normal rate and regular rhythm. Heart sounds: No murmur heard. Pulmonary: Breath sounds: Normal breath sounds. No wheezing. Abdominal: General: Bowel sounds are normal. Palpations: Abdomen is soft. Tenderness: There is no abdominal tenderness. Musculoskeletal: Right shoulder: Tenderness present. Decreased range of motion. Right wrist: Tenderness present. Cervical back: Normal range of motion. No tenderness. Lumbar back: Tenderness present. Right hip: Tenderness present. Left hip: Tenderness present. Right upper leg: Tenderness present. Right knee: Decreased range of motion. Tenderness present over the lateral joint line and LCL. Right lower leg: Tenderness present. Skin: General: Skin is warm. Neurological: General: No focal deficit present. Mental Status: She is alert and oriented to person, place, and time. Psychiatric: Mood and Affect: Mood normal. Patient had a vasovagal reaction immediately following Toradol injection to the right shoulder. Shefelt dizzy and sweaty, she laid down on the table, elevation of the legs and she was given p.o. water. Her BP went down to 89/40, heart rate was 110 and O2 sat was 97% on room air. She felt significantly better when laying down, she completed 1 full Glass of water and vital signs stabilized prior to discharge. Problem List Items Addressed This Visit Sprain of hip - Primary More on the right hip than the left, status post fall on thin ice. She will be out of work for 2 days, and can be back on 07/17/2024 to light duty for 1 day. Take Tylenol every 6 hours as needed pain plus diclofenac gel twice daily as needed pain Warm soaks to affected area, order x-rays and will call back with results and change POC if needed Relevant Medications ketorolac (Toradol) injection 30 mg (Completed) Other Relevant Orders XR Hip 2 or 3 Views Left XR Hip 2 or 3 Views Right Anterior leg pain, right Status post fall on thin ice. She will be out of work for 2 days, and can be back on 07/17/2024 to light duty for 1 day. Take Tylenol every 6 hours as needed pain plus diclofenac gel twice daily as needed pain Warm soaks to affected area, order x-rays and will call back with results and change POC if needed Relevant Orders XR Femur 2+ Views Right XR Tibia Fibula 2 Views Right Acute pain of right knee Status post fall on thin ice. She will be out of work for 2 days, and can be back on 07/17/2024 to light duty for 1 day. Take Tylenol every 6 hours as needed pain plus diclofenac gel twice daily as needed pain Warm soaks to affected area, order x-rays and will call back with results and change POC if needed Relevant Orders XR Knee 3 Views Right Vasovagal reaction Immediately after examination and Toradol injection, there was no respiratory distress, wheezing orfacial edema. Patient lying on her side with elevation of the legs, will give her p.o. water and blood pressure went back up to normal. Patient was able to move up to the chair with no other symptoms and discharged home with stable vital signs. Advised to increase water intake, she will be out of work for 2 days, call back 911 if she developsshortness of breath, facial edema, palpitations, or severe dizziness. Follow Up: Current Outpatient Medications on File Prior to Visit Medication Sig Dispense Refill acetaminophen (Tylenol Extra Strength) 500 MG tablet Take 2 tablets (1,000 mg) by mouth Every 8-12 hours as needed for mild pain or moderate pain. 100 tablet 1 benzoyl peroxide 5 % cream Apply topically. buPROPion SR (Wellbutrin SR) 100 MG 12 hr tablet TOME GEETA TABLETA TODOS LOS D EN LA MA KIMBERLY calcium carbonate (Tums) 500 MG chewable tablet Chew 1,000 mg. gabapentin (Neurontin) 100 MG capsule Take 1 capsule (100 mg) by mouth every 8 (eight) hours. 90 capsule 0 hydrOXYzine pamoate (Vistaril) 25 MG capsule TAKE 1-2 CAPSULE BY MOUTH TWICE A DAY NEEDED SLEEP/ANXIETY lamoTRIgine (LaMICtal) 25 MG tablet TOME 1 TABLETA POR V A ORAL TODOS LOS D QUEtiapine (SEROquel) 25 MG tablet Take 1 tablet (25 mg) by mouth at bedtime. 30 tablet 0 SUMAtriptan (Imitrex) 50 MG tablet Take 1 tablet (50 mg) by mouth 1 (one) time if needed for migraine for up to 18 doses. May repeat dose once in 2 hours if no relief. Do not exceed 2 doses in 24 hours. 9 tablet 1 No current facility-administered medications on file prior to visit. * Montserrat Kohler RN - 07/14/2024 5:[address] Valencia present when Ketorolac 30mg IM administered. Pt had vasovagal reaction per provider, pt provided water, assisted by provider to lay down on examination table. Vital signs assessed BP manual checked by Dr. Valencia- left arm 80/40, pulse 72, 97% RA, temp 97.6F temporal. BP recheck 123/79 left arm laying. Pt reported feeling better. Pt provided water and juice. BP recheck at 1721, 112/74 and again at 1723 110/76, pulse 80. Pt advised to wait approx ten minutes for BP recheck. Provider advised MA to recheck BP(see vitals documented at 1741.) Status check to be performedtomorrow by Walk In RNs per provider message. documented in this encounter Miscellaneous Notes * Assessment & Plan Note - Kimberly Valencia MD - 07/14/2024 5:34 PM EST Associated Problem(s): Vasovagal reaction Immediately after examination and Toradol injection, there was no respiratory distress, wheezing orfacial edema. Patient lying on her side with elevation of the legs, will give her p.o. water and blood pressure went back up to normal. Patient was able to move up to the chair with no other symptoms and discharged home with stable vital signs. Advised to increase water intake, she will be out of work for 2 days, call back 911 if she developsshortness of breath, facial edema, palpitations, or severe dizziness. * Assessment & Plan Note - Kimberly Valencia MD - 07/14/2024 5:33 PM EST Associated Problem(s): Sprain of hip More on the right hip than the left, status post fall on thin ice. She will be out of work for 2 days, and can be back on 07/17/2024 to light duty for 1 day. Take Tylenol every 6 hours as needed pain plus diclofenac gel twice daily as needed pain Warm soaks to affected area, order x-rays and will call back with results and change POC if needed * Assessment & Plan Note - Kimberly Valencia MD - 07/14/2024 5:32 PM EST Associated Problem(s): Acute pain of right knee Status post fall on thin ice. She will be out of work for 2 days, and can be back on 07/17/2024 to light duty for 1 day. Take Tylenol every 6 hours as needed pain plus diclofenac gel twice daily as needed pain Warm soaks to affected area, order x-rays and will call back with results and change POC if needed * Assessment & Plan Note - Kimberly Valencia MD - 07/14/2024 5:32 PM EST Associated Problem(s): Anterior leg pain, right Status post fall on thin ice. She will be out of work for 2 days, and can be back on 07/17/2024 to light duty for 1 day. Take Tylenol every 6 hours as needed pain plus diclofenac gel twice daily as needed pain Warm soaks to affected area, order x-rays and will call back with results and change POC if needed documented in this encounter Plan of Treatment Upcoming Encounters Date Type Department Care Team (Late st Contact Info) Description 08/21/2024 2:45 PM EDT Office Visit [facility] MEDICINE [address] [place] [id number] Name, MD Delroy [address] [place] [address] 08/27/2024 2:00 PM EDT Office Visit [facility] MEDICINE [address] [place] [address] Johanny Aguilar, ABEBAM [address] [place] [address] 09/01/2024 2:30 PM EDT Office Visit [facility] OPTOMETRY [address] [place] [address] Medhat, Raeann, OD [address] [place] [address] Scheduled Orders Name Type Priority Associated Diagnoses Orde r Schedule XR Hip 2 or 3 Views Left Imaging Routine Sprain of hip, unspecified laterality, initial encounter Expected: 07/14/2024 (Approximate), Expires: 07/14/2025 XR Hip 2 or 3 Views Right Imaging Routine Sprain of hip, unspecified laterality, initial encounter Expected: 07/14/2024 (Approximate), Expires: 07/14/2025 XR Knee 3 Views Right Imaging Routine Acute pain of right knee Expected: 07/14/2024 (Approximate), Expires: 07/14/2025 XR Femur 2+ Views Right Imaging Routine Anterior leg pain, right Expected: 07/14/2024 (Approximate), Expires: 07/14/2025 XR Tibia Fibula 2 Views Right Imaging Routine Anterior leg pain, right Expected: 07/14/2024 (Approximate), Expires: 07/14/2025 documented as of this encounter Visit Diagnoses Diagnosis Sprain of hip, unspecified laterality, initial encounter- Primary Anterior leg pain, right Acute pain of right knee Vasovagal reaction Syncope and collapse documented in this encounter Administered Medications Inactive Administered Medications - up to 3 most recent administrations Medication Order MAR Action Action Date Dose Rate Site ketorolac (Toradol) injection 30 mg 30 mg, Intramuscular, Once, On Sat07/14/24 at 1715, For 1 doseIndications:Sprain of hip, unspecified laterality, initial encounter Given 07/14/2024 5:15 PM EST 30 mg Right Deltoid documented in this encounter Additional Health Concerns Assessment Noted Time PHQ-9 Depression Total Score: 2 01/28/20 25 3:19 PM EST documented as of this encounter Care Teams Asbestos Worker Helper Relationship Specialty Start Date End Date Name, MD Delroy [address] [place] [address] PCP - General Family Medicine 03/22/21 documented as of this encounter
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
--- OUTSIDE RECORDS SUMMARY | 2024-07-15 14:30 | XMS_ITS | Encounter Summary ---
Author Organization [employer] [facility] Address [address] [facility] 7t [place] [address] Care Team Providers Care Hydraulic Press Servicer Name Role Phone Name, Delroy VILA Primary Care Provider [phone] Reason for Visit * Reason Onset Date Comments Medication Question 06/05/2024 Encounter Details Date Type Department Care Team (Late st Contact Info) Description 06/05/[address] [facility] [address] [place] [address] Name, MD Delroy [address] [place] [address] Medication Question Social History Tobacco Use Types Packs/Day Years [...] encounter Miscellaneous Notes * Telephone Encounter - Mackenzie Cain RN - 06/08/2024 11:30 AM EST TC placed to pt via [employer] professional healthcare representative ([employer] ID#[id number]) to discuss message, Tc from pt requestinga call back in regards medication, stated its personal and want to speak with a nurse. Pt reports having an outbreak of herpes simplex virus and does not have medication to treat. Pt requesting medication to treat herpes simplex virus. Message forwarded to provider for review. * Telephone Encounter - Clarita Verma - 06/05/2024 11:42 AM EST Tc from pt requesting a call back in regards medication, stated its personal and want to speak witha nurse. [phone] documented in this encounter Plan of Treatment Upcoming Encounters Date Type Department Care Team (Late st Contact Info) Description 08/21/2024 2:45 PM EDT Office Visit [facility] MED[facility] [address] [place] [id number] Name, MD Delroy [address] [place] [id number] 08/27/2024 2:00 PM EDT Office Visit [facility] [address] [place] [phone] Johanny Aguilar CNM [address] [place] [address] 09/01/2024 2:30 PM EDT Office Visit [facility] OPTOMETRY [address] [place] [address] Raeann Meléndez, OD [address] [place] [address] documented as of this encounter Visit Diagnoses Not on filedocumented in this encounter Additional Health Concerns Assessment Noted Time PHQ-9 Depression Total Score: 14 023 9:30 AM EDT documented as of this encounter Care Teams Hydraulic Press Servicer Relationship Specialty Start Date End Date Name, MD Delroy [address] [place] [address] PCP - General Family Medicine 03/22/21 documented as of this encounter
--- OUTSIDE RECORDS SUMMARY | 2024-07-15 14:30 | XMS_ITS | Encounter Summary ---
Author Organization [employer] Address [address] [facility] 7t [place] [address] Care Team Providers Care Energy Auditor Name Role Phone Name, Delroy VILA Primary Care Provider [phone] Encounter Details Date Type Department Care Team (Latest Contact Info) Description 06/26/2024 Travel Social History Tobacco Use Types Packs/Day Years [...] 2:45 PM EDT Office Visit [facility] MEDICINE [address] [place] [address] Name, MD Delroy [address] [place] [address] 08/27/2024 2:00 PM EDT Office Visit [facility] MEDICINE [address] [place] [address] Johanny Aguilar, ABEBAM [address] [place] [address] 09/01/2024 2:30 PM EDT Office Visit [facility] OPTOMETRY [address] [place] [address] Raeann Meléndez, OD [address] [place] [address] documented as of this encounter Visit Diagnoses Not on filedocumented in this encounter Additional Health Concerns Assessment Noted Time PHQ-9 Depression Total Score: 2 06/23/19 25 3:19 PM EST documented as of this encounter Care Teams Energy Auditor Relationship Specialty Start Date End Date NameDelroy MD [address] [place] [address] PCP - General Family Medicine 03/22/21 documented as of this encounter
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
--- OUTSIDE RECORDS SUMMARY | 2024-07-15 14:30 | XMS_ITS | Encounter Summary ---
Author Organization [employer] Address 75 [facility] 7t [place] [address] Care Team Providers Care Healthcare Social Worker Name Role Phone Name, Delroy VILA Primary Care Provider [phone] Reason for Visit * Reason Onset Date Comments Pre-op appt details 06/23/2024 Encounter Details Date Type Department Care Team (Late st Contact Info) Description 06/23/2024 Telephone [facility] MEDICINE [address] [place] [address] Komal Rodrigez RN Pre-op appt details Social History Tobacco Use Types Packs/Day Years [...] encounter Miscellaneous Notes * Telephone Encounter - Komal Rodrigez RN - 06/23/2024 3:25 PM EST Tc to [facility] to confirm pre-op details, they report they have been trying to get in contact with pt regarding more information needed. Informed them will contact pt to have them call them back. Tc to pt via [email or web address] id: [email or web address] [id number] to schedule pre-op appt, pt agrees and scheduled on 08/21/24 with PCP at 2:45 pm. Pt verbalized understanding and reports they already contacted their surgeon office today. Pt denies any further questions or concerns at this time Date of Surgery: August, Surgical procedure: BBL Surgeon's Name: Dr. Gregor Carreon Type of Anesthesia: General Surgeon office contact phone number: [phone] fax: [phone] contact name ( person spoke with): [facility] Needed? Yes EKG? Yes documented in this encounter Plan of Treatment Upcoming Encounters Date Type Department Care Team (Late st Contact Info) Description 08/21/2024 2:45 PM EDT Office Visit [facility] MEDICINE [address] [place] [address] Name, MD Delroy [address] [place] [address] 08/27/2024 2:00 PM EDT Office Visit [facility] MEDICINE [address] [place] [address] Johanny Aguilar, KRISSY [address] [place] [address] 09/01/2024 2:30 PM EDT Office Visit [facility] OPTOMETRY [address] [place] [address] Raeann Meléndez, OD [address] [place] [address] documented as of this encounter Visit Diagnoses Not on filedocumented in this encounter Additional Health Concerns Assessment Noted Time PHQ-9 Depression Total Score: 2 06/23/19 25 3:19 PM EST documented as of this encounter Care Teams Healthcare Social Worker Relationship Specialty Start Date End Date Name, MD Delroy [address] [place] [address] PCP - General Family Medicine 03/22/21 documented as of this encounter
--- OUTSIDE RECORDS SUMMARY | 2024-07-15 14:30 | XMS_ITS | Encounter Summary ---
Author Organization [employer] Address 75 [facility] 7t [place] [address] Care Team Providers Care Ballpoint Pen Assembly Machine Operator Name Role Phone Name, Delroy VILA Primary Care Provider [phone] Reason for Visit * Reason Onset Date Comments Triage 10/01/2022 Encounter Details Date Type Department Care Team (Late st Contact Info) Description 10/01/2022 Telephone [facility] MEDICINE [address] [place], [place] [phone] Name, MD Delroy [address] [place] [address] Triage Social History Tobacco Use Types Packs/Day Years [...] suspected to have Coronavirus/COVID-19? No / Unsure 09/17/2022 4:49 PM EDT documented as of this encounter Miscellaneous Notes * Telephone Encounter - Michelle Lanier RN - 10/01/2022 9:49 AM EDT Triage call with [employer] Col[employer] [place] [id number] Pt reports having increased anxiety and panic attacks and depression for several days now. Pt reports 50mg sertraline is not doing anything to help the depression. 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 Pt has been having problems completing the work day. Pt cries alot and is always sad. Pt has been requesting a therapist/psychiatrist but, hasn't had a call back. Pt is requesting an assigned person to talk to. Pt is advised to come to [facility] today after work and Pt agrees withthis plan. Home care reviewed. Protocol Used: Anxiety and Panic Attack (Adult) Protocol-Based Disposition: See in Office or Video Visit within 3 Days Video visit not offered Positive Triage Questions: * Symptoms interfere with work or school * Requesting to talk to a counselor (e.g., mental health worker, psychiatrist) * Patient wants to be seen * All higher-acuity triage questions were negative Care Advice Discussed: * Note to Triager - Anxiety Symptoms * Note to Triager - Panic Attack * Reassurance and Education - Anxiety * Healthy Living Basics * Avoid Triggers of Anxiety * Avoid Caffeine * Stress Reduction * Reasons To Call Back - Anxiety or panic attacks continue - You feel like harming yourself - You become worse * Telephone Encounter - Jumana Gilmore - 10/01/2022 8:31 AM EDT Symptoms: Anxiety or Panic Attack, Depression Outcome: Schedule an urgent appointment (within 4 hours) or talk to a nurse or provider soon Reason: Getting worse The caller accepted this outcome *Patient speaks [place] Citizen. Patient states sertraline 50 mg medication is not working and is requesting status of referral for psychiatrist or therapist. documented in this encounter Plan of Treatment Upcoming Encounters Date Type Department Care Team (Late st Contact Info) Description 08/21/2024 2:45 PM EDT Office Visit [facility] MEDICINE [address] [place] [address] Name, MD Delroy [address] [place] [address] 08/27/2024 2:00 PM EDT Office Visit [facility] MEDICINE [address] [place] [address] Johanny Aguilar, KRISSY [address] [place] [address] 09/01/2024 2:30 PM EDT Office Visit [facility] OPTOMETRY [address] [place] [address] Raeann Meléndez, OD [address] [place] [address] documented as of this encounter Visit Diagnoses Not on filedocumented in this encounter Care Teams Ballpoint Pen Assembly Machine Operator Relationship Specialty Start Date End Date Name, MD Delroy [address] [place], [place] [phone] PCP - General Family Medicine 03/22/21 documented as of this encounter
--- OUTSIDE RECORDS SUMMARY | 2024-07-15 14:30 | XMS_ITS | Clinical Summary ---
Author Organization [facility] it Address [address] [place] [address] Care Team Providers Care Marketing Rotation Associate Name Role Phone Unavailable Primary Care Provider Unavailabl e Social History Tobacco Use Types Packs/Day Years Used Date Smoking Tobacco: Never Assessed Comments Unknown Sex and Gender Information Value Date Recorded Sex Assigned at Not on file Legal Sex Female 4:56 PM EST Gender Identity Not on file Sexual Orientation Not on file Plan of Treatment Health Maintenance Due Date Last Done Comments DTaP,Tdap,and Td Vaccines (1 - Tdap) 2005 Hepatitis B Vaccines (1 of 3 - 19+ 3-dose series) 2005 Cervical Cancer Screening: P ap Smear 12/14/2007 Depression Screening 04/25/2022 HIV Screening 04/25/2022 Hepatitis C Screening 04/25/2022 Social Influencers of Health Screening 04/25/2022 COVID-19 Vaccine (2023-2 5 season) 2024 Influenza Vaccine (#1) 2024 HIB Vaccines Aged Out No longer eligi ble based on patient's age to complete this topic HPV Vaccines Aged Out No longer eligi ble based on patient's age to complete this topic Hepatitis A Vaccines Aged Out No long er eligible based on patient's age to complete this topic IPV Vaccines Aged Out No longer eligi ble based on patient's age to complete this topic MMR Vaccines Aged Out No longer eligi ble based on patient's age to complete this topic Meningococcal ACWY Vaccine Aged Out N o longer eligible based on patient's age to complete this topic Meningococcal B Vacine Aged Out No lo nger eligible based on patient's age to complete this topic Pneumococcal Vaccine: Pediat rics (0 to 5 Years) and At-Risk Patients (6 to 64 Years) Aged Out No longer eligible b ased on patient's age to complete this topic RSV Immunization Patients Un lizy 20 months Aged Out No longer eligible b ased on patient's age to complete this topic Varicella Vaccines Aged Out No longer eligible based on patient's age to complete this topic
--- OUTSIDE RECORDS SUMMARY | 2024-07-15 14:30 | XMS_ITS | Encounter Summary ---
Author Organization [employer] Address 75 [facility] 7t [place] [address] Care Team Providers Care Tool Engineer Name Role Phone Name, Delroy VILA Primary Care Provider Reason for Visit * Reason Comments Vomiting Diarrhea Encounter Details Date Type Department Care Team ([facility] st Contact Info) Description 06/23/2024 2:45 PM EST Office Visit [facility] MEDICINE [address] [place], [place] [phone] Name, MD Delroy [address] [place] [address] Nausea and vomiting, unspecified vomiting type (Primary Dx); Diarrhea, unspecified type Social History Tobacco Use Types Packs/Day Years [...] Sign Reading Time Taken Comments Blood Pressure 122/73 06/23/2024 2:48 PM EST Pulse 90 06/23/2024 2:48 PM EST Temperature 37 ??C (98.6 ??F) 06/23/2024 2:48 PM EST Respiratory Rate 21 06/23/2024 2:48 PM EST Oxygen Saturation 97% 06/23/2024 2:48 PM EST Inhaled Oxygen Concentration - - Weight 67.7 kg (149 lb 3.2 oz) 06/23/2024 2:48 P M EST Height 165.1 cm (5' 5 ) 06/23/2024 2:48 PM EST Body Mass Index 24.83 06/23/2024 2:48 PM EST documented in this encounter Progress Notes * Delroy Tian MD - 06/23/2024 2:45 PM EST Subjective Patient ID: Radha Del Castillo is a 38 y.o. female who presents for Vomiting and Diarrhea. Patient comes for a sick visit. She is having vomiting, diarrhea, malaise, body aches since yesterday. She lives with her son. She denies any recent sick contacts. She she had at least 10 watery bowel movements and has vomited 5 times. She only tolerates drinking Gatorade. Review of Systems Constitutional: Negative for chills and fever. HENT: Negative for sore throat. Respiratory: Negative for cough, shortness of breath and wheezing. Cardiovascular: Negative for chest pain, palpitations and leg swelling. Gastrointestinal: See HPI. Visit Vitals BP 122/73 (BP Location: Left arm, Patient Position: Sitting, BP Cuff Size: Adult) Pulse 90 Temp 98.6 ??F (37 ??C) (Temporal) Resp 21 Ht 5' 5 (1.651 m) Wt 149 lb 3.2 oz (67.7 kg) SpO2 97% BMI 24.83 kg/m?? OB Status Having periods Smoking Status Former BSA 1.76 m?? Objective Physical Exam Constitutional: General: She is not in acute distress. Appearance: She is not toxic-appearing. Cardiovascular: Rate and Rhythm: Normal rate and regular rhythm. Pulmonary: Effort: Pulmonary effort is normal. No respiratory distress. Abdominal: Tenderness: There is no abdominal tenderness. Assessment/Plan Diagnoses and all orders for this visit: Nausea and vomiting, unspecified vomiting type Comments: Symptoms are most likely secondary to a viral gastroenteritis. I recommended to drink plenty of fluids , note for work, rest, symptomatic diarrhea and nausea treatment, call if not better by tomorrow. Orders: - loperamide (Imodium A-D) 2 MG tablet; Take 1-2 tablets (2-4 mg) by mouth if needed in the morning, at noon, in the evening, and at bedtime for diarrhea for up to 10 days. - ondansetron (Zofran) 4 MG tablet; Take 1 tablet (4 mg) by mouth every 8 (eight) hours if needed for nausea or vomiting for up to 7 days. Diarrhea, unspecified type - loperamide (Imodium A-D) 2 MG tablet; Take 1-2 tablets (2-4 mg) by mouth if needed in the morning, at noon, in the evening, and at bedtime for diarrhea for up to 10 days. - ondansetron (Zofran) 4 MG tablet; Take 1 tablet (4 mg) by mouth every 8 (eight) hours if needed for nausea or vomiting for up to 7 days. documented in this encounter Plan of Treatment Upcoming Encounters Date Type Department Care Team (Late st Contact Info) Description 08/21/2024 2:45 PM EDT Office Visit [facility] MEDICINE [address] [place] [address] Name, MD Delroy [address] [place] [address] 08/27/2024 2:00 PM EDT Office Visit [facility] MEDICINE [address] [place] [address] Johanny Aguilar CNM [address] [place] [address] 09/01/2024 2:30 PM EDT Office Visit [facility] OPTOMETRY [address] [place] [address] Raeann Meléndez, OD [address] [place] [address] documented as of this encounter Visit Diagnoses Diagnosis Nausea and vomiting, unspecified vomiting type- Primary Diarrhea, unspecified type documented in this encounter Additional Health Concerns Assessment Noted Time PHQ-9 Depression Total Score: 2 06/23/19 25 3:19 PM EST documented as of this encounter Care Teams Tool Engineer Relationship Specialty Start Date End Date Delroy Tain MD [address] [place] [address] PCP - General Family Medicine 03/22/21 documented as of this encounter
== END 2024-07-15 14:23 | disposition home or self-care (01) ==
LOC: HO.HHCX 14:22
PROVIDERS: Visit Provider Internal Medicine
DX: M25.561 Pain in right knee (principal); M79.604 Pain in right leg; S73.101D Unspecified sprain of right hip, subsequent encounter; S73.102D Unspecified sprain of left hip, subsequent encounter
CPT/HCPCS: 73502; 73564; 73590

== ENCOUNTER → 2024-07-15 14:22 | Outpatient (BNV) | payer MEDICAID, SELFPAY | PROVIDERS: Visit Provider Radiology Diagnostic Radiology | DX: M25.561 Pain in right knee (principal); M25.552 Pain in left hip; M25.551 Pain in right hip; M79.661 Pain in right lower leg | CPT/HCPCS: 73502; 73564; 73590 ==

== ENCOUNTER 2024-09-30 15:33 | Outpatient (REF) | payer MEDICAID, SELFPAY ==
[2024-09-30 16:19] LABS: Hematocrit 37.5 % (37.0-47.0); Hemoglobin 12.4 g/dl (12.0-16.0); Mean Corpuscular HGB Conc 33.1 g/dl (31.0-35.0); Mean Corpuscular Hemoglobin 29.7 pg (27.0-33.0); Mean Corpuscular Volume 89.9 fL (80.0-98.0); Mean Platelet Volume 11.5 fL (9.4-12.3); Platelet Count 354 X10*3/uL (160-400); Red Blood Count 4.17 X10*6/uL (4.20-5.50); White Blood Count 7.6 X10*3/uL (4.8-10.8)
--- OUTSIDE RECORDS SUMMARY | 2024-09-30 16:22 | XMS_ITS | Encounter Summary ---
Author Organization [employer] Address [address] [place] [address] [address] [place] [address] Care Team Providers Care Graduate Internship Name Role Phone Name, Delroy VILA Primary Care Provider [phone] Reason for Visit * Reason Comments Med Refill Encounter Details Date Type Department Care Team (Late st Contact Info) Description 12/27/2022 Refill [facility] MEDICINE [address] [place] [address] [phone] Name, MD Delroy [address] [place] [address] Social History Tobacco Use Types Packs/Day Years [...] as of this encounter Plan of Treatment Not on file documented as of this encounter Visit Diagnoses Not on filedocumented in this encounter Additional Health Concerns Assessment Noted Time PHQ-9 Depression Total Score: 14 023 9:30 AM EDT documented as of this encounter Care Teams Graduate Internship Relationship Specialty Start Date End Date Name, MD Delroy [address] [place], [place] [phone] PCP - General Family Medicine 03/22/21 documented as of this encounter
--- OUTSIDE RECORDS SUMMARY | 2024-09-30 16:22 | XMS_ITS | Encounter Summary ---
Author Organization [employer] Address 75 [facility] 7t [place] [address] Care Team Providers Care Nursing Clerk Name Role Phone Name, Delroy VILA Primary Care Provider [phone] Reason for Visit * Reason Onset Date Comments Medication Question 06/05/2024 Encounter Details Date Type Department Care Team ([facility] st Contact Info) Description 06/05/2024 Telephone [facility] MEDICINE [address] [place] [address] Name, MD Delroy [address] [place] [address] Medication Question Social History Tobacco Use Types [...] AM EST TC placed to pt via [employer] aircraft maintenance manager ([employer] ID#[id number]) to discuss message, Tc from pt requestinga [...] personal and want to speak witha nurse. [phone] documented in this encounter Plan of Treatment Not on file documented as of this encounter Visit Diagnoses Not on filedocumented in this encounter Additional Health Concerns Assessment Noted Time PHQ-9 Depression Total Score: 14 023 9:30 AM EDT documented as of this encounter Care Teams Nursing Clerk Relationship Specialty Start Date End Date Name, MD Delroy [address] [place] [address] PCP - General Family Medicine 03/22/21 documented as of this encounter
--- OUTSIDE RECORDS SUMMARY | 2024-09-30 16:22 | XMS_ITS | Encounter Summary ---
Author Organization [employer] Address 75 [facility] [address] [place] [address] Care Team Providers Care Residential Sales Rep Name Role Phone Name, Delroy VILA Primary Care Provider [phone] Reason for Visit * Reason Onset Date Comments CHART PREP 09/29/2024 Encounter Details Date Type Department Care Team ([facility] st Contact Info) Description 09/29/2024 Telephone [facility] MEDICINE [address] [place], [place] [phone] Name, MD Delroy [address] [place] [address] CHART PREP Social History Tobacco Use Types Packs/Day Years [...] encounter Miscellaneous Notes * Telephone Encounter - Jackie Bell MA - 09/29/2024 3:35 PM EDT Chart Prep Labs: not applicable Images: done Knee X ray 07/15/24 Referrals: not applicable Vaccines due: Hep B and Hep A Screenings: LMP Overdue care gaps: SBIRT and Disability screen documented in this encounter Plan of Treatment Not on file documented as of this encounter Visit Diagnoses Not on filedocumented in this encounter Additional Health Concerns Assessment Noted Time PHQ-9 Depression Total Score: 2 06/23/19 25 3:19 PM EST documented as of this encounter Care Teams Residential Sales Rep Relationship Specialty Start Date End Date Name, MD Delroy [address] [place] [address] PCP - General Family Medicine 03/22/21 documented as of this encounter
--- OUTSIDE RECORDS SUMMARY | 2024-09-30 16:22 | XMS_ITS | Encounter Summary ---
Author Organization [employer] Address 75 [facility] [address] [address] Care Team Providers Care Turner Splitter Machine Operator Name Role Phone Name, Delroy VILA Primary Care Provider Reason for Visit * Reason Comments Med Refill Encounter Details Date Type Department Care Team (Late st Contact Info) Description 12/27/2022 Refill [facility] MEDICINE [address] [place], [place] [phone] Karolina Lucero ANP [address] [place], [place] [phone] Social History Tobacco Use Types Packs/Day Years [...] documented as of this encounter Care Teams Turner Splitter Machine Operator Relationship Specialty Start Date End Date Name, MD Delroy [address] [place], [place] [phone] PCP - General Family Medicine 03/22/21 documented as of this encounter
--- OUTSIDE RECORDS SUMMARY | 2024-09-30 16:22 | XMS_ITS | Encounter Summary ---
Author Organization [employer] Address 75 [facility] 7t [place] [address] Care Team Providers Care Firmware Test Engineer Name Role Phone Name, Delroy VILA Primary Care Provider [phone] Reason for Visit * Reason Onset Date Comments triage 07/31/2022 Encounter Details Date Type Department Care Team ([facility] st Contact Info) Description 07/31/2022 Telephone [facility] MEDICINE [address] [place], [place] [phone] Name, MD Delroy [address] [place], [place] [phone] triage Social History Tobacco Use Types Packs/Day [...] 07/31/2022 12:23 PM EST Triage call with [employer] Stripper And Crusher Id [id number] Pt reports rectal bleeding has occurred for [...] be checked before Pt goes. Offered the [facility] today and Pt agreed with disposition and [...] blood The caller accepted this outcome speaks macedonian documented in this encounter Plan of Treatment Not on file documented as of this encounter Visit Diagnoses Not on filedocumented in this encounter Care Teams Firmware Test Engineer Relationship Specialty Start Date End Date Name, MD Delroy [address] [place] [address] PCP - General Family Medicine 03/22/21 documented as of this encounter
--- OUTSIDE RECORDS SUMMARY | 2024-09-30 16:22 | XMS_ITS | Encounter Summary ---
Author Organization [employer] Address 75 [facility] 7t [place] [address] Care Team Providers Care Infection Control Practitioner Name Role Phone Name, Delroy VILA Primary Care Provider [phone] Reason for Visit * Reason Onset Date Comments Triage 10/01/2022 Encounter Details Date Type Department Care Team ([facility] st Contact Info) Description 10/01/[address] [facility] MEDICINE [address] [place], [place] [phone] Name, MD Delroy [address] [place], [place] [phone] Triage Social History Tobacco Use Types Packs/Day [...] 10/01/2022 9:49 AM EDT Triage call with [employer] Office Copy Selector ID [id number] Pt reports having increased anxiety and panic [...] to. Pt is advised to come to [facility] today after work and Pt agrees withthis [...] The caller accepted this outcome *Patient speaks [place]. Patient states sertraline 50 mg medication is not working and is requesting status of referral for psychiatrist or therapist. documented in this encounter Plan of Treatment Not on file documented as of this encounter Visit Diagnoses Not on filedocumented in this encounter Care Teams Infection Control Practitioner Relationship Specialty Start Date End Date Name, MD Delroy [address] [place] [address] PCP - General Family Medicine 03/22/21 documented as of this encounter
--- OUTSIDE RECORDS SUMMARY | 2024-09-30 16:22 | XMS_ITS | Encounter Summary ---
Author Organization [employer] Address [address] [facility] [address] [place] [address] Care Team Providers Care Guest Relations Associate Name Role Phone Name, Delroy VILA Primary Care Provider [phone] Encounter Details Date Type Department Care Team (Latest Contact Info) Description 09/30/2024 Travel Social History Tobacco Use Types Packs/Day [...] documented as of this encounter Care Teams Guest Relations Associate Relationship Specialty Start Date End Date Name, MD Delroy [address] [place] [address] PCP - General Family Medicine 03/22/21 documented as of this encounter
--- OUTSIDE RECORDS SUMMARY | 2024-09-30 16:22 | XMS_ITS | Clinical Summary ---
Author Organization [facility] it Address [address] [place] [address] Care Team Providers Care Buffet Attendant Name Role Phone Unavailable Primary Care Provider [...] Vaccine (2023-2 5 season) 2024 Influenza Vaccine (Season Ended) 2025 HIB Vaccines Aged Out No longer eligi [...] age to complete this topic Meningococcal B Vaccine Aged Out No l onger eligible based on patient's age to complete [...]
--- OUTSIDE RECORDS SUMMARY | 2024-09-30 16:22 | XMS_ITS | Encounter Summary ---
Author Organization [employer] Address [address] [facility] [address] [place] [address] Care Team Providers Care Drying Machine Back Tender Name Role Phone Name, Delroy VILA Primary Care Provider [phone] Encounter Details Date Type Department Care Team (Late st Contact Info) Description 08/09/2023 Telephone [facility] MEDICINE [address] [place] [address] Name, MD Delroy [address] [place], [place] [phone] Social History Tobacco Use Types Packs/Day Years [...] documented as of this encounter Care Teams Drying Machine Back Tender Relationship Specialty Start Date End Date Name, MD Delroy [address] [place] [address] PCP - General Family Medicine 03/22/21 documented as of this encounter
--- OUTSIDE RECORDS SUMMARY | 2024-09-30 16:22 | XMS_ITS | Encounter Summary ---
Author Organization [facility] Address [address] [place] [address] Care Team Providers Care Financial Systems Manager Name Role Phone Name, Delroy VILA Primary Care Provider [phone] Reason for Visit * Reason Onset Date Comments Date change for surgery 09/30/2024 Encounter Details Date Type Department Care Team (Late st Contact Info) Description 09/30/2024 Telephone [facility] MEDICINE [address] [place], [place] [phone] Name, MD Delroy [address] [place] [address] Date change for surgery Social History Tobacco Use Types Packs/Day Years [...] encounter Miscellaneous Notes * Telephone Encounter - Shania Reynolds [place] - 09/30/2024 3:26 PM EDT T/C-Drug Abuse Worker called place of surgery to ask for fax number. Fax number is [phone] * Telephone Encounter - Shania Reynolds MA - 09/30/2024 3:22 PM EDT Patient came in for Pre Op appointment. Patient stated she had the new Doctor and surgery date that's is not the same place she ahd originally told us. New Surgery date and doctor Date of surgery:10/23/24 Surgical procedure: BBL Surgeon's Name: Dr. William Mcgowan NIP:[id number] Type of Anesthesia: General Surgeon office contact phone number: [phone] fax: contact name: Patient Labs Needed? Yes EKG? Yes documented in this encounter Plan of Treatment Not on file documented as of this encounter Visit Diagnoses Not on filedocumented in this encounter Additional Health Concerns Assessment Noted Time PHQ-9 Depression Total Score: 2 06/23/19 3:19 PM EST documented as of this encounter Care Teams Financial Systems Manager Relationship Specialty Start Date End Date Name, MD Delroy [address] [place] [address] PCP - General Family Medicine 03/22/21 documented as of this encounter
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
--- OUTSIDE RECORDS SUMMARY | 2024-09-30 16:23 | XMS_ITS | Encounter Summary ---
Author Organization [employer] Address [address] [facility] [address] [place] [address] Care Team Providers Care Copy Machine Operator Name Role Phone Name, Delroy VILA Primary Care Provider [phone] Reason for Visit * Reason Comments Pre-op Exam Encounter Details Date Type Department Care Team ([facility] st Contact Info) Description 09/30/2024 2:15 PM EDT Office Visit [facility] [address] [place], [place] [phone] Jo Garcia MD [address] [place] [address] Preop examination (Primary Dx) Social History Tobacco Use Types Packs/Day Years [...] Mass Index 24.73 09/30/2024 2:46 PM EDT documented in this encounter Plan of Treatment Scheduled Orders Name Type Priority Associated Diagnoses Orde r Schedule Hemoglobin A1c Lab Routine Preop examination Expected: 09/30/2024 (Approximate), Expires: 09/30/2025 Comprehensive Metabolic Panel Lab Routine Preop examination Expected: 09/30/2024 (Approximate), Expires: 09/30/2025 Hepatitis B surface antigen, EIA Lab Routine Preop examination Expected: 09/30/2024 (Approximate), Expires: 09/30/2025 Hepatitis C Antibody with Reflex to HCV, RNA, Quantitative, Real-Time PCR Lab Routine Preop examination Expected: 09/30/2024 (Approximate), Expires: 09/30/2025 Hepatitis B Core Antibody, Total Lab Routine Preop examination Expected: 09/30/2024 (Approximate), Expires: 09/30/2025 Hepatitis B Surface Antibody, Qualitative Lab Routine Preop examination Expected: 09/30/2024 (Approximate), Expires: 09/30/2025 HIV-1/2 Antigen and Antibodies, Fourth Generation, with Reflexes Lab Routine Preop examination Expected: 09/30/2024 (Approximate), Expires: 09/30/2025 TSH with Reflex to Free T4 Lab Routine Preop examination Expected: 09/30/2024 (Approximate), Expires: 09/30/2025 Prothrombin Time-INR Lab Routine Preop examination Expected: 09/30/2024, Expires: 09/30/2025 Partial Thromboplastin Time, Activated (APTT) Lab Routine Preop examination Expected: 09/30/2024, Expires: 09/30/2025 hCG, Total, Quantitative Lab Routine Preop examination Expected: 09/30/2024 (Approximate), Expires: 09/30/2025 documented as of this encounter Procedures Procedure Name Priority Date/Time Associated Diagnosis Comments CBC Routine 09/30/2024 3:36 PM EDT Preop examination ECG 12-LEAD Routine 09/30/2024 3:11 PM EDT Preop examination documented in this encounter Results * (ABNORMAL) CBC (09/30/2024 3:36 PM EDT) White Blood Count 7.6 4.8 - 10.8 X10*3/uL [facility] Red Blood Count 4.17(L) 4.20 - 5.50 X10*6/uL [facility] Hemoglobin 12.4 12.0 - 16.0 g/dl [facility] Hematocrit 37.5 37.0 - 47.0 % [facility] Mean Corpuscular Volume 89.9 80.0 - 98.0 fL [facility] Mean Corpuscular Hemoglobin 29.7 27.0 - 33.0 pg [facility] Mean Corpuscular HGB Conc 33.1 31.0 - 35.0 g/dl [facility] Red Cell Distribution Width 14.0 11.0 - 16.0 % [facility] Platelet Count 354 160 - 400 X10*3/uL [facility] Mean Platelet Volume 11.5 9.4 - 12.3 fL [facility] NRBC Pct Auto 0.0 0.0 - 0.2 /100WBC [facility] NRBC Abs Auto 0.000 0.0 - 0.012 X10*3/uL [facility] Blood Venous blood specimen / Unknown 09/30/2024 3:36 PM EDT 09/30/2024 4:13 PM EDT us Jo James MD LAB BLOOD ORDERAB LES Final Result [facility] [address] [place] [address] [phone] * ECG 12 lead (09/30/2024 3:11 PM EDT) Narrative Jo Garcia MD - 09/30/2024 3:11 PM EDT -EKG today HR 80,Qtc 413, NSR, no ischemic findings us Jo James MD ECG ORDERABLES F inal Result documented in this encounter Visit Diagnoses Diagnosis Preop examination- Primary Unspecified pre-operative examination documented in this encounter Additional Health Concerns Assessment Noted Time PHQ-9 Depression Total Score: 2 06/23/19 25 3:19 PM EST documented as of this encounter Care Teams Copy Machine Operator Relationship Specialty Start Date End Date Name, MD Delroy [address] [place] [address] PCP - General Family Medicine 03/22/21 documented as of this encounter
[2024-09-30 16:27] LABS: INTERNATIONAL NORM RATIO 0.9 (0.9-1.1); Prothrombin Time 10.2 SEC (10.9-12.4)
[2024-09-30 16:28] LABS: Estimated Average Glucose 105 mg/dL; Hemoglobin A1C 114.0082 umol/L; Hemoglobin A1c % 5.3 % (<6.0); Total Hemoglobin (HGBA1C) 3329.6701 umol/L
[2024-09-30 16:30] LABS: Partial Thromboplastin Time 29.9 SEC (26.0-36.8)
[2024-09-30 17:02] LABS: Alanine Aminotransferase 19 U/L (0-31); Albumin Level 4.5 g/dL (3.5-5.0); Alkaline Phosphatase 108 U/L (39-117); Anion Gap 12 (12-20); Aspartate Amino Transferase 22 U/L (5-31); Bilirubin Total 0.3 mg/dL (0.0-1.0); Blood Urea Nitrogen 14 mg/dL (9-16); Calcium 9.6 mg/dL (8.4-10.2); Carbon Dioxide 25 mmol/L (22-29); Chloride 106 mmol/L (96-108); Estimated Glomerular Filt Rate > 60; Glucose Random 86 mg/dL (60-115); Potassium 4.2 mmol/L (3.3-5.1); Sodium 139 mmol/L (135-145)
[2024-09-30 17:06] LABS: HCG Quantitative < 2 mIU/mL; TSH reflex Free T4 1.59 uIU/mL (0.32-4.0)
[2024-10-01 04:44] LABS: HBS Num1 624.82 mIU/mL (0-7.99); HBc Num1 0.11 S/CO (0.00-0.79); HIV AB/AG Nonreactive (Nonreactive); HIV Num 1 0.06 S/CO (0.00-0.99); Hepatitis B Core Antibody Nonreactive (Nonreactive); Hepatitis B Surface Antigen Negative (Negative); ~HepC Num1 9.04 S/CO (0.00-0.79); ~Hepatitis B Surface Antibody REACTIVE (Nonreactive); ~Hepatitis C Antibody Reactive (Nonreactive)
[2024-10-06 13:43] LABS: HCV Log PCR <1.18 NOT DETECTED Log IU/mL (NOT DETECTED); HepC Viral Load <15 NOT DETECTED IU/mL (NOT DETECTED)
== END 2024-09-30 15:34 | disposition home or self-care (01) ==
LOC: HO.HHCL 15:33
PROVIDERS: Visit Provider Student in an Organized Health Care Education/Training Program
DX: Z01.818 Encounter for other preprocedural examination (principal)
CPT/HCPCS: 36415; 80053; 83036; 84443; 84702; 85027; 85610; 85730; 86704; 86706; 86803; 87340; 87389; 87522

== ENCOUNTER 2024-10-05 11:26 | Outpatient (REF) | payer MEDICAID, SELFPAY ==
[2024-10-05 12:00] LABS: INTERNATIONAL NORM RATIO 0.9 (0.9-1.1); Prothrombin Time 10.3 SEC (10.9-12.4)
--- OUTSIDE RECORDS SUMMARY | 2024-10-05 12:16 | XMS_ITS | Encounter Summary ---
Author Organization [email or web address] Address [address] [facility] [address] [place] [address] Care Team Providers Care Intervention Manager Name Role Phone Name, Delroy VILA Primary Care Provider [phone] Reason for Visit * Reason Onset Date Comments triage 07/31/2022 Encounter Details Date Type Department Care Team ([facility] st Contact Info) Description 07/31/2022 Telephone [facility] [address] [place], [place] [phone] Name, MD Delroy [address] [place], [place] [phone] triage Social History Tobacco Use Types Packs/Day [...] 07/31/2022 12:23 PM EST Triage call with [employer] Water Manager Id [id number] Pt reports rectal bleeding has occurred for [...] be checked before Pt goes. Offered the [facility] today and Pt agreed with disposition and [...] blood The caller accepted this outcome speaks georgian documented in this encounter Plan of Treatment Not on file documented as of this encounter Visit Diagnoses Not on filedocumented in this encounter Care Teams Intervention Manager Relationship Specialty Start Date End Date Name, MD Delroy [address] [place] [address] PCP - General Family Medicine 03/22/21 documented as of this encounter
--- OUTSIDE RECORDS SUMMARY | 2024-10-05 12:16 | XMS_ITS | Encounter Summary ---
Author Organization [employer] Address [address] [place] [address] Care Team Providers Care Receiving Clerk Name Role Phone Name, Delroy VILA Primary Care Provider [phone] Encounter Details Date Type Department Care Team [...] documented as of this encounter Care Teams Receiving Clerk Relationship Specialty Start Date End Date Name, MD Delroy [address] [place] [address] PCP - General Family Medicine 03/22/21 documented as of this encounter
--- OUTSIDE RECORDS SUMMARY | 2024-10-05 12:16 | XMS_ITS | Encounter Summary ---
Author Organization [employer] Address [address] [facility] [address] [place] [address] Care Team Providers Care Relationship Associate Name Role Phone Name, Delroy VILA Primary Care Provider [phone] Reason for Visit * Reason Onset Date Comments Medication Question 06/05/2024 Encounter Details Date Type Department Care Team ([facility] st Contact Info) Description 06/05/2024 Telephone [facility] [address] [place] [address] Name, MD Delroy [address] [place] [address] Medication Question Social History Tobacco Use Types [...] AM EST TC placed to pt via [email or web address] metal spray operator ([place] ID#[id number]) to discuss message, Tc from pt requestinga [...] personal and want to speak witha nurse. [phone] documented in this encounter Plan of Treatment Not on file documented as of this encounter Visit Diagnoses Not on filedocumented in this encounter Additional Health Concerns Assessment Noted Time PHQ-9 Depression Total Score: 14 023 9:30 AM EDT documented as of this encounter Care Teams Relationship Associate Relationship Specialty Start Date End Date Name, MD Delroy [address] [place] [address] PCP - General Family Medicine 03/22/21 documented as of this encounter
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
--- OUTSIDE RECORDS SUMMARY | 2024-10-05 12:16 | XMS_ITS | Encounter Summary ---
Author Organization [employer] Address [address] [facility] 7t [place] [address] Care Team Providers Care Design Cell Engineer Name Role Phone Name, Delroy VILA Primary Care Provider [phone] Encounter Details Date Type Department Care Team ([facility] st Contact Info) Description 10/01/2024 Orders Only [facility] [address] [place], [place] [phone] Jo Garcia MD [address] [place], [place] [phone] Abnormal prothrombin time (PT) (Primary Dx) Social History Tobacco Use Types [...] AM EDT documented as of this encounter Progress Notes * Jo James MD - 10/01/2024 4:25 PM EDT . documented in this encounter Plan of Treatment Scheduled Orders Name Type Priority Associated Diagnoses Orde r Schedule Mixing Study Lab Routine Abnormal prothrombin time (PT) Expected: 10/01/2024 (Approximate), Expires: 10/01/2025 documented as of this encounter Procedures Procedure Name Priority Date/Time Associated Diagnosis Comments PROTHROMBIN TIME-INR Routine 10/05/2024 11:41 AM EDT Abnormal prothrombin time (PT) documented in this encounter Results * (ABNORMAL) Prothrombin Time-INR (10/05/2024 11:41 AM EDT) Prothrombin Time 10.3(L) 10.9 - 12.4 SEC [facility] INTERNATIONAL NORM RATIO 0.9 0.9 - 1.1 [facility] Comment:INTERNATIONAL NORMAL IZED RATIO (INR) REFERENCE [...] MD LAB BLOOD ORDERAB LES Final Result [facility] [address] [place] [phone] documented in this encounter Visit Diagnoses Diagnosis Abnormal prothrombin time (PT)- Primary Abnormal coagulation profile documented in this encounter Additional Health Concerns Assessment Noted Time PHQ-9 Depression Total Score: 2 06/23/19 25 3:19 PM EST documented as of this encounter Care Teams Design Cell Engineer Relationship Specialty Start Date End Date Name, MD Delroy [address] [place] [address] PCP - General Family Medicine 03/22/21 documented as of this encounter
--- OUTSIDE RECORDS SUMMARY | 2024-10-05 12:16 | XMS_ITS | Encounter Summary ---
Author Organization [employer] Address [address] [facility] [address] [place] [address] Care Team Providers Care Pipeline Dispatch Operator Name Role Phone Name, Delroy VILA Primary Care Provider [phone] Encounter Details Date Type Department Care Team (Late st Contact Info) Description 08/09/2023 Telephone [facility] MED[facility]INE [address] [place] [address] Name, MD Delroy [address] [place], [place] [phone] Social History Tobacco Use Types Packs/Day Years [...] documented as of this encounter Care Teams Pipeline Dispatch Operator Relationship Specialty Start Date End Date Name, MD Delroy [address] [place] [address] PCP - General Family Medicine 03/22/21 documented as of this encounter
--- OUTSIDE RECORDS SUMMARY | 2024-10-05 12:16 | XMS_ITS | Encounter Summary ---
Author Organization [employer] Address [address] [place] [address] [address] [place] [address] Care Team Providers Care Custom Motorcycle Painter Name Role Phone Name, Delroy VILA Primary Care Provider [phone] Reason for Visit * Reason Comments Med Refill Encounter Details Date Type Department Care Team (Late st Contact Info) Description 12/27/2022 Refill [facility] MEDICINE [address] [place], [place] [phone] Karolina Lucero ANP [address] [place], [place] [phone] Social History Tobacco Use Types Packs/Day Years [...] documented as of this encounter Care Teams Custom Motorcycle Painter Relationship Specialty Start Date End Date Name, MD Delroy [address] [place], [place] [phone] PCP - General Family Medicine 03/22/21 documented as of this encounter
--- OUTSIDE RECORDS SUMMARY | 2024-10-05 12:16 | XMS_ITS | Encounter Summary ---
Author Organization [employer] Address [address] [place] [address] [address] [address] Care Team Providers Care Assistant Plant Controller Name Role Phone Name, Delroy VILA Primary Care Provider [phone] Reason for Visit * Reason Comments Med Refill Encounter Details Date Type Department Care Team (Late st Contact Info) Description 12/27/2022 Refill [facility] MED[facility]INE [address] [place] [phone] Name, MD Delroy [address] [place] [address] Social History Tobacco Use Types Packs/Day Years [...] documented as of this encounter Care Teams Assistant Plant Controller Relationship Specialty Start Date End Date Name, MD Delroy [address] [place], [place] [phone] PCP - General Family Medicine 03/22/21 documented as of this encounter
--- OUTSIDE RECORDS SUMMARY | 2024-10-05 12:16 | XMS_ITS | Encounter Summary ---
Author Organization [employer] Address [address] [facility] [address] [place] [address] Care Team Providers Care Supervisor Clam Bed Name Role Phone Name, Delroy VILA Primary Care Provider [phone] Reason for Visit * Reason Onset Date Comments Lab Orders 10/02/2024 Encounter Details Date Type Department Care Team (Late st Contact Info) Description 10/02/2024 Telephone [facility] MEDICINE [address] [place] [address] Bess Hackett RN Lab Orders Social History Tobacco Use Types Packs/Day Years [...] encounter Miscellaneous Notes * Telephone Encounter - Bess Hackett RN - 10/02/2024 11:13 AM EDT TC placed to pt in regards to request for callback but pt stated that she is all set and requires no further assistance. * Telephone Encounter - July Lucas - 10/02/2024 9:18 AM EDT Tc from pt returning call in regards prior message. Please return call [phone] * Telephone Encounter - Bess Hackett RN - 10/02/2024 9:11 AM EDT TC placed to pt with [facility] captain cannery tender #[id number] to inform of message below from Dr. Arellano requesting the pt have repeat labs for the PT/INR drawn due to some irregularities in the results. Pt advised that the repeat lab test was ordered and to have this performed at [facility] lab at the soonest convenience. Pt agreeable to these instructions and had no further questions or concerns. ----- Message from Jo James MD sent at 10/01/2024 4:28 PM EDT ----- Please inform that from her labs done yesterday noted one abnormality in coagulation test ,will need to repeat test but please [facility] dont think they can do it here in our lab I tried calling pt today but no answer Thanks documented in this encounter Plan of Treatment Not on file documented as of this encounter Visit Diagnoses Not on filedocumented in this encounter Additional Health Concerns Assessment Noted Time PHQ-9 Depression Total Score: 2 06/23/19 25 3:19 PM EST documented as of this encounter Care Teams Supervisor Clam Bed Relationship Specialty Start Date End Date Name, MD Delroy [address] [place] [address] PCP - General Family Medicine 03/22/21 documented as of this encounter
--- OUTSIDE RECORDS SUMMARY | 2024-10-05 12:16 | XMS_ITS | Encounter Summary ---
Author Organization [employer] Address [address] [facility] 7[address] [place] [address] Care Team Providers Care Jet Inspector Name Role Phone Name, Delroy VILA Primary Care Provider [phone] Reason for Visit * Reason Onset Date Comments Triage 10/01/2022 Encounter Details Date Type Department Care Team ([facility] st Contact Info) Description 10/01/2022 Telephone [facility] MEDICINE [address] [place], [place] [phone] Name, MD Delroy [address] [place], [place] [phone] Triage Social History Tobacco Use Types Packs/Day [...] 10/01/2022 9:49 AM EDT Triage call with Intean Poalroath [place] [employer] Work[employer] [place] [id number] Pt reports having increased anxiety and panic [...] to. Pt is advised to come to [facility] today after work and Pt agrees [...] The caller accepted this outcome *Patient speaks Cymraes. Patient states sertraline 50 mg medication is not working and is requesting status of referral for psychiatrist or therapist. documented in this encounter Plan of Treatment Not on file documented as of this encounter Visit Diagnoses Not on filedocumented in this encounter Care Teams Jet Inspector Relationship Specialty Start Date End Date Name, MD Delroy [address] [place] [phone] PCP - General Family Medicine 03/22/21 documented as of this encounter
--- OUTSIDE RECORDS SUMMARY | 2024-10-05 12:16 | XMS_ITS | Encounter Summary ---
Author Organization [employer] Address [address] [facility] [address] [place] [address] Care Team Providers Care Non Destructive Evaluation Manager Name Role Phone Name, Delroy VILA Primary Care Provider [phone] Reason for Visit * Reason Comments Pre-op Exam Encounter Details Date Type Department Care Team (Latest Contact Info) Description 09/30/2024 2:15 PM EDT Office Visit [facility] [address] [place] [address] [phone] Jo Garcia MD [address] [place] [address] Preop examination (Primary Dx); Preop cardiovascular exam Social History Tobacco Use Types Packs/Day Years [...] 2:46 PM EDT documented in this encounter Progress Notes * Jo James MD - 09/30/2024 2:15 PM EDT Subjective Patient ID: Radha Del Castillo is a 38 y.o. female who presents for preop evaluation HPI 38 y o F with PMX of Bipolar dx ,anxiety,Hx of hep C s/p Tx Comes for pre-op evaluation for liposuction with fat transfer to buttocks ,chin liposuction , planned for 10/23/2024 to be done in [place] Pt Brings form from surgeon requesting labs( hb1AC,cbc,chem,hbcg ,hepC ,B ,hiv,coag time Tsh),CXR,EKG Pt denies any Hx of CHF, heart attacks, strokes, nor lung disease. Pt denies having any CP, palpitations, SOB, nor dizziness. Pt denies a Hx of med allergies Previous surgical Hx none . Cardiac Risk History of ischemic heart disease: NO (history of myocardial infarction or a positive exercise test, current complaint of chest pain considered to be secondary to myocardial ischemia, use of nitrate therapy, or ECG with pathological Q waves): History of heart failure: NO History of cerebrovascular disease: NO Diabetes mellitus requiring treatment with insulin: NO Preoperative serum creatinine >2.0 mg/dL : NO Activity tolerance >4 METS: YES,does aprox 2 hours of activity at gym 2 to 3 times a week Bleeding Risk: Chronic anticoagulation: NO Daily aspirin: NO Blood clotting disorder: NO Pulmonary History: Negative BMI > 40: NO Smoking History: Denies current tobacco use,stopped 3 y ago ETOH: Denies Daily use,social only Substance Use: marijuana daily Personal or family history of anesthesia reaction: NO No Known Allergies Review of Systems Constitutional: Negative for chills, diaphoresis and fever. HENT: Negative. Respiratory: Negative for cough and shortness of breath. Cardiovascular: Negative for chest pain and palpitations. Gastrointestinal: Negative. Genitourinary: Negative. Skin: Negative for rash. Neurological: Negative. Objective BP 117/70 (BP Location: Left arm, Patient Position: Sitting, BP Cuff Size: Adult) Pulse 82 Temp98.6 ??F (37 ??C) (Temporal) Resp 20 Ht 5' 5 (1.651 m) Wt 148 lb 9.6 oz (67.4 kg) LMP 09/30/2024 (Exact Date) SpO2 98% BMI 24.73 kg/m?? Physical Exam Constitutional: General: She is not in acute distress. Appearance: Normal appearance. HENT: Head: Normocephalic. Mouth/Throat: Mouth: Mucous membranes are moist. Eyes: Pupils: Pupils are equal, round, and reactive to light. Cardiovascular: Rate and Rhythm: Normal rate and regular rhythm. Pulmonary: Effort: Pulmonary effort is normal. Breath sounds: Normal breath sounds. No stridor. No wheezing or rhonchi. Abdominal: Palpations: Abdomen is soft. Musculoskeletal: Cervical back: Neck supple. Right lower leg: No edema. Left lower leg: No edema. Skin: General: Skin is warm. Neurological: General: No focal deficit present. Mental Status: She is alert. Psychiatric: Mood and Affect: Mood normal. Assessment/Plan Problem List Items Addressed This Visit Preop cardiovascular exam RCRI is 0 going for moderate risk [...] then and will fax it to # [phone] -advised pt to avoid any NSAIDS and ASA 7 days prior surgery -pt will discuss with her psychiatrist in regards psych meds that takes in am if ok to hold on day of surgery Other Visit Diagnoses Preop examination - Primary Relevant Orders Hemoglobin A1c (Completed) CBC (Completed) Comprehensive Metabolic Panel (Completed) Hepatitis B surface antigen, EIA Hepatitis C Antibody with Reflex to HCV, RNA, Quantitative, Real-Time PCR Hepatitis B Core Antibody, Total Hepatitis B Surface Antibody, Qualitative HIV-1/2 Antigen and Antibodies, Fourth Generation, with Reflexes TSH with Reflex to Free T4 (Completed) Prothrombin Time-INR (Completed) Partial Thromboplastin Time, Activated (APTT) (Completed) hCG, Total, Quantitative (Completed) ECG 12 lead (Completed) documented in this encounter Miscellaneous Notes * Assessment & Plan Note - Jo James MD - 09/30/2024 10:51 PM EDTAssociated Problem(s): Preop cardiovascular exam RCRI is 0 going for moderate risk [...] then and will fax it to # [phone] -advised pt to avoid any NSAIDS and ASA 7 days prior surgery -pt will discuss with her psychiatrist in regards psych meds that takes in am if ok to hold on day of surgery * Result Encounter Note - Jo James MD - 09/30/2024 2:15 PM EDT Please inform that from her labs done yesterday noted one abnormality in coagulation test ,will need to repeat test but please advise pt to do it at [facility] given I dont think they can do it here in our lab I tried calling pt today but no answer Thanks documented in this encounter Plan of Treatment Not on file documented as of this encounter Procedures Procedure Name Priority Date/Time Associated Diagnosis Comments TSH W/REFLEX TO FT4 Routine 09/30/2024 3 :36 PM EDT Preop examination HEPATITIS C AB W/REFL TO HCV RNA, QN, PCR Routine 09/30/2024 3:36 PM EDT Preop examination HEPATITIS B SURFACE ANTIGEN, EIA Routine 09/30/2024 3:36 PM EDT Preop examination HEPATITIS B CORE AB TOTAL Routine 09/30/2024 3:36 PM EDT Preop examination HIV 1/2 ANTIGEN/ANTIBODY, FOURTH GENERATION W/RFL Routine 09/30/2024 3:36 PM EDT Preop examination HEPATITIS B SURFACE ANTIBODY, QUALITATIVE Routine 09/30/2024 3:36 PM EDT Preop examination APTT Routine 09/30/2024 3:36 PM EDT Preop examination PROTHROMBIN TIME-INR Routine 09/30/2024 3:36 PM EDT Preop examination CBC Routine 09/30/2024 3:36 PM EDT Preop examination HCG, TOTAL, QN Routine 09/30/2024 3:36 PM EDT Preop examination HEMOGLOBIN A1C Routine 09/30/2024 3:36 PM EDT Preop examination COMPREHENSIVE METABOLIC PANEL Routine 09/30/2024 3:36 PM EDT Preop examination ECG 12-LEAD Routine 09/30/2024 3:11 PM EDT Preop examination documented in this encounter Results * hCG, Total, Quantitative (09/30/2024 3:36 PM EDT) HCG Quantitative <2 mIU/mL [facility] Comment:Weeks post LMP Appro ximate hCG(Last Menstrual Period) Range (mIU/ml)3 - 4 weeks 9 - 1304 - 5 weeks 75 - 2,6005 - 6 weeks 850 - 20,8006 - 7 weeks 4000 - 100,2007 - 12 weeks 11,500 - 289,58622 - 16 weeks 18,300 - 137,25024 - 29 weeks (2nd trimester) 1,400 - 53,32600 - 41 weeks (3rd trimester) 940 - [...] MD LAB BLOOD ORDERAB LES Final Result [facility] [address] [place] [phone] * Partial Thromboplastin Time, Activated (APTT) (09/30/2024 3:36 PM EDT) Partial Thromboplastin Time 29.9 26.0 - 36.8 SEC [facility] Comment:For information rega rding the monitoring of direct thrombininhibitors, please refer to Pharmacy. Blood Venous blood specimen / Unknown 09/30/2024 3:36 PM EDT 09/30/2024 4:13 PM EDT Jo James MD LAB BLOOD ORDERAB LES Final Result Performing Organization Address City/[facility]/ZIP Co de Phone Number [facility] [address] [place] [phone] * (ABNORMAL) Prothrombin Time-INR (09/30/2024 3:36 PM EDT) Prothrombin Time 10.2(L) 10.9 - 12.4 SEC [facility] INTERNATIONAL NORM RATIO 0.9 0.9 - 1.1 [facility] Comment:INTERNATIONAL NORMAL IZED RATIO (INR) REFERENCE [...] 3.5 Blood Venous blood specimen / Unknown 09/30/2024 3:36 PM EDT 09/30/2024 4:13 PM EDT Jo James MD LAB BLOOD ORDERAB LES Final Result Performing Organization Address [facility]/ZIP Co de Phone Number [facility] [address] [place] [address] [phone] * TSH with Reflex to Free T4 (09/30/2024 3:36 PM EDT) [facility] TSH reflex Free T4 1.59 0.32 - 4.0 uIU/mL [facility] Blood 09/30/2024 3:36 PM EDT 09/30/2024 4:13 PM EDT Jo James MD LAB BLOOD ORDERAB LES Final Result Performing Organization Address City/[facility]/ZIP Co de Phone Number [facility] [address] [place] [address] [phone] * HIV-1/2 Antigen and Antibodies, Fourth Generation, with Reflexes (09/30/2024 3:36 PM EDT) [facility] HIV AB/AG Nonreactive Nonreactive [facility] Comment:HIV-1 p24 Ag and/or HIV-1/HIV-2 Ab not detected.A test result that is nonreactive does not exclude thepossibility of exposure to or infection with HIV-1 and/orHIV-2. Nonreactive results in this assay for individualswith prior exposure to HIV-1 and/or HIV-2 may be due toantigen and antibody levels that are below the limit ofdetection of this assay.The [employer] HIV Ag/Ab Combo assay result andsupplemental assay results should be interpreted inconjunction with the patient's clinical presentation,history and other laboratory results. If the results areinconsistent with clinical evidence, additional testing issuggested to confirm the result. Blood Venous blood specimen / Unknown 09/30/2024 3:36 PM EDT 09/30/2024 4:13 PM EDT us Jo James MD LAB BLOOD ORDERAB LES Final Result Performing Organization Address City/[facility]/ZIP Co de Phone Number [facility] [address] [place] [address] [phone] * Hepatitis B Surface Antibody, Qualitative (09/30/2024 3:36 PM EDT) ~Hepatitis B Surface Antibody REACTIVE Nonreactive [facility] Comment:REACTIVE: > 11.99 mI U/mL Blood Venous blood specimen / Unknown 09/30/2024 3:36 PM EDT 09/30/2024 4:13 PM EDT us Jo James MD LAB BLOOD ORDERAB LES Final Result Performing Organization Address [facility]/ZIP Co de Phone Number [facility] [address] [place] [address] [phone] * Hepatitis B Core Antibody, Total (09/30/2024 3:36 PM EDT) Hepatitis B Core Antibody Nonreactive Nonreactive [facility] Blood Venous blood specimen / Unknown 09/30/2024 3:36 PM EDT 09/30/2024 4:13 PM EDT us Jo James MD LAB BLOOD ORDERAB LES Final Result Performing Organization Address [facility] Number [facility] [address] [place] [address] [phone] * (ABNORMAL) Hepatitis C Antibody with Reflex to HCV, RNA, Quantitative, Real- Time PCR (09/30/2024 3:36 PM EDT) Hepatitis C Antibody Reactive( A) Nonreactive [facility] Comment:Presumptive evidence of antibodies to HCV. Blood Venous blood specimen / Unknown 09/30/2024 3:36 PM EDT 09/30/2024 4:13 PM EDT Jo James MD LAB BLOOD ORDERAB LES Final Result Performing Organization Address [facility] de Phone Number [facility] [address] [place] [address] [phone] * Hepatitis B surface antigen, EIA (09/30/2024 3:36 PM EDT) Hepatitis B Surface Ag Negative Negative [facility] Blood Venous blood specimen / Unknown 09/30/2024 3:36 PM EDT 09/30/2024 4:13 PM EDT us Jo James MD LAB BLOOD ORDERAB LES Final Result [facility] [address] [place], [place] [phone] * Comprehensive Metabolic Panel (09/30/2024 3:36 PM EDT) Pathologist [facility] Sodium 139 135 - 145 mmol/L [facility] Potassium 4.2 3.3 - 5.1 mmol/L [facility] Chloride 106 96 - 108 mmol/L [facility] Carbon Dioxide 25 22 - 29 mmol/L [facility] Anion Gap 12 12 - 20 [facility] Urea Nitrogen (BUN) 14 9 - 16 mg/dL [facility] Creatinine, Serum 0.59 0.5 - 1.4 mg/dL [facility] Estimated Glomerular Filt Rate >60 [facility] Comment:Chronic Kidney Disea se: Estimated GFR < 60 mL/min/1.58b3Eintdv Kidney Disease: Estimated GFR < 15 mL/min/1.73m2 Glucose 86 60 - 115 mg/dL [facility] Calcium 9.6 8.4 - 10.2 mg/dL [facility] Bilirubin, Total 0.3 0.0 - 1.0 mg/dL [facility] Aspartate Amino Transferase 22 5 - 31 U/L [facility] Alanine Aminotransferase 19 0 - 31 U/L [facility] Total Protein 8.0 6.5 - 8.0 g/dL [facility] Albumin Level 4.5 3.5 - 5.0 g/dL [facility] Alkaline Phosphatase 108 39 - 117 U/L [facility] Blood Venous blood specimen / Unknown 09/30/2024 3:36 PM EDT 09/30/2024 4:13 PM EDT us Jo James MD LAB BLOOD ORDERAB LES Final Result [facility] [address] [place] [phone] * (ABNORMAL) CBC (09/30/2024 3:36 PM EDT) White Blood Count 7.6 4.8 - 10.8 X10*3/uL [facility] Red Blood Count 4.17(L) 4.20 - 5.50 X10*6/uL [facility] Hemoglobin 12.4 12.0 - 16.0 g/dl [facility] Hematocrit 37.5 37.0 - 47.0 % [facility] Mean Corpuscular Volume 89.9 80.0 - 98.0 fL [facility] Mean Corpuscular Hemoglobin 29.7 27.0 - 33.0 pg [facility] Mean Corpuscular HGB Conc 33.1 31.0 - 35.0 g/dl [facility] Red Cell Distribution Width 14.0 11.0 - 16.0 % [facility] Platelet Count 354 160 - 400 X10*3/uL [facility] Mean Platelet Volume 11.5 9.4 - 12.3 fL [facility] NRBC Pct Auto 0.0 0.0 - 0.2 /100WBC [facility] NRBC Abs Auto 0.000 0.0 - 0.012 X10*3/uL [facility] Blood Venous blood specimen / Unknown 09/30/2024 3:36 PM EDT 09/30/2024 4:13 PM EDT us Jo James MD LAB BLOOD ORDERAB LES Final Result [facility] [address] [place] [address] [phone] * Hemoglobin A1c (09/30/2024 3:36 PM EDT) Hemoglobin A1c 5.3 <6.0 % [facility] Comment:Hemoglobin A1C Refer ence Range Adults: 4.8 - 6.0 % Non diabetic: < 6.0 % Goal: < 7.0 %Additional Action Suggested: > 8.0 %Note: Hemoglobin A1c results are invalid for patients with abnormal amounts of HbF. Blood transfusions may impact the HbA1c concentration in the patient sample. Estimated Average Glucose 105 mg/dL [facility] Comment:eAG = Estimated ave rage glucose which is %A1C expressed asaverage glucose, using the formula of the T5H-JudwrwhKesuapf Glucose study (ADAG), Diabetes Care, Vol.31,#8,2007 Blood Venous blood specimen / Unknown 09/30/2024 3:36 PM EDT 09/30/2024 4:13 PM EDT us Jo James MD LAB BLOOD ORDERAB LES Final Result [facility] [address] [place] [address] [phone] * ECG 12 lead (09/30/2024 3:11 PM EDT) Narrative Jo Garcia MD - 09/30/2024 3:11 PM EDT -EKG today HR 80,Qtc 413, NSR, no ischemic findings us Jo James MD ECG ORDERABLES F inal Result documented in this encounter Visit Diagnoses Diagnosis Preop examination- Primary Unspecified pre-operative examination Preop cardiovascular exam Pre-operative cardiovascular examination documented in this encounter Additional Health Concerns Assessment Noted Time PHQ-9 Depression Total Score: 2 06/23/19 25 3:19 PM EST documented as of this encounter Care Teams Non Destructive Evaluation Manager Relationship Specialty Start Date End Date Name, MD Delroy [address] [place] [address] PCP - General Family Medicine 03/22/21 documented as of this encounter
--- OUTSIDE RECORDS SUMMARY | 2024-10-05 12:16 | XMS_ITS | Encounter Summary ---
Author Organization [employer] Address [address] [facility] [address] [place] [address] Care Team Providers Care Bottle Tester Name Role Phone Name, Delroy VILA Primary Care Provider [phone] Reason for Visit * Reason Onset Date Comments Date change for surgery 09/30/2024 Encounter Details Date Type Department Care Team (Late st Contact Info) Description 09/30/2024 Telephone [facility] [address] [place], [place] [phone] Name, MD Delroy [address] [place] [address] Date change for surgery Social History Tobacco [...] Reynolds MA - 09/30/2024 3:26 PM EDT T/C-[employer] Tile Sorter called place of surgery to ask for fax number. Fax number is [phone] * Telephone Encounter - Shania Reynolds MA - 09/30/2024 3:22 PM EDT Patient came in for Pre Op appointment. Patient stated she had the new Doctor and surgery date that's is not the same place she ahd originally told us. New Surgery date and doctor Date of surgery:10/23/24 Surgical procedure: BBL Surgeon's Name: Dr. William Mcgowan NIP:[id number] Type of Anesthesia: General Surgeon office contact phone number: [phone] fax: contact name: Patient Labs Needed? Yes EKG? Yes documented in this encounter Plan of Treatment Not on file documented as of this encounter Visit Diagnoses Not on filedocumented in this encounter Additional Health Concerns Assessment Noted Time PHQ-9 Depression Total Score: 2 06/23/19 3:19 PM EST documented as of this encounter Care Teams Bottle Tester Relationship Specialty Start Date End Date Name, MD Delroy [address] [place] [address] PCP - General Family Medicine 03/22/21 documented as of this encounter
[2024-10-09 20:04] LABS: Mixing Study - PT 10.4 sec (9.0-11.5); PTT LA 30 sec (< OR = 40)
== END 2024-10-05 11:27 | disposition home or self-care (01) ==
LOC: HO.LAB 11:26
PROVIDERS: PCP Internal Medicine Geriatric Medicine; Visit Provider Student in an Organized Health Care Education/Training Program
DX: R79.1 Abnormal coagulation profile (principal)
CPT/HCPCS: 36415; 85610; 85611; 85732